=== PATIENT | female | born 1980 | race Caucasian/White ===

== ENCOUNTER → 2016-09-12 | Outpatient (REF) | payer OTHER ==
[~2016-09-12] MED LIST: INSUDET SC; INSULADS INJ; INSUR SC; LANTINJ4 SC; LISI-538 PO; LISI-542 PO; LISI10TA4 PO; MACR100C3 PO; MYLASSUD PO; NOVOINJ3 SC; PROT1TAB2 PO; REGL5TAB2 PO; VITA1CAP25 PO; ZETI10TA2 PO
== END ==
LOC: M LAB REF 17:24
PROVIDERS: ATTEND Physician Assistant Medical
DX: N39.0 Urinary tract infection, site not specified (principal)

== ENCOUNTER 2016-09-21 15:12 | Inpatient (IN) | payer OTHER ==
[~2016-09-21] VITALS: Ht 167.6 cm; Wt 74.0 kg
[~2016-09-21 15:12] MED LIST changes: +AUGM875T27 PO; -INSULADS INJ; +INSULADS SC; +PERCOCET PO
[2016-09-21] MEDS ORDERED: NITR100C2 (15:24)
[2016-09-21 16:44] LABS: BASO % 0.1 % (0.0-1.0); EOS # 0.1 K/mm3 (0.0-0.50); EOS % 0.4 % (0.0-3.0); LARGE UNSTAINED CELL # 0.1 K/mm3 (0.0-0.4); LARGE UNSTAINED CELL % 0.3 % (0.0-4.0); LYMPH # 0.5 K/mm3 (1.5-4.5); LYMPH % 2.9 % (24.0-44.0); MEAN CORPUSCULAR HGB CONC 29.9 g/dl (32.0-36.5); MEAN CORPUSCULAR VOLUME 86.9 fl (80.0-96.0); MONO # 0.2 K/mm3 (0.0-0.8); MONO % 1.2 % (0.0-5.0); NEUTROPHILS # 15.3 K/mm3 (1.8-7.7); NEUTROPHILS % 95.1 % (36.0-66.0); PLATELET COUNT, AUTOMATED 449 k/mm3 (150-450); RED CELL DISTRIBUTION WIDTH 14.1 % (11.5-14.5)
[2016-09-21] MEDS ORDERED: cefTRIAXone SOD 2 GM in D5W MINI-BAG PLUS 50 ML IV ONE (16:45)
[2016-09-21] MEDS ORDERED: METOCLOPRAMIDE INJ 10MG/2ML VIAL (J2765) IV ONE (16:45)
[2016-09-21 17:00] LABS: ALBUMIN 1.5 GM/DL (3.2-5.2); ALBUMIN/GLOBULIN RATIO 0.32 (1.00-1.93); ALKALINE PHOSPHATASE 620 U/L (45-117); ALT/SGPT 140 U/L (12-78); ANION GAP 11 MEQ/L (8-16); AST/SGOT 98 U/L (15-37); BILIRUBIN,TOTAL 0.4 MG/DL (0.2-1.0); BLOOD UREA NITROGEN 17 MG/DL (7-18); CALCIUM LEVEL 7.9 MG/DL (8.5-10.1); CARBON DIOXIDE LEVEL 26 MEQ/L (21-32); CHLORIDE LEVEL 97 MEQ/L (98-107); CREATININE FOR GFR 1.09 MG/DL (0.55-1.02); GLOMERULAR FILTRATION RATE > 60.0 (>60); GLUCOSE, FASTING 252 MG/DL (70-105); POTASSIUM SERUM 4.2 MEQ/L (3.5-5.1); SODIUM LEVEL 134 MEQ/L (136-145); TOTAL PROTEIN 6.2 GM/DL (6.4-8.2)
[2016-09-21] MEDS ORDERED: ACETAMINOPHEN 325 MG TAB PO ONE (17:00)
[2016-09-21 17:05] LABS: ERYTHROCYTE SEDIMENTATION RATE 127 mm/hr (0-20)
--- NOTE | 2016-09-21 17:59 | REP ---
Chest x-ray: Two views: History: Shortness of breath. Comparison chest x-ray: 11/24/2015. Findings: There are small bilateral pleural effusions which is a new finding from the prior study. In addition, the cardiac silhouette is prominent on today's frontal and lateral views. Cardiothoracic ratio is 14.7 cm over 28.4 cm. Pulmonary vasculature is cephalized. Impression: Cardiomegaly, small bilateral pleural effusions, cephalization and congestion the pulmonary vasculature. Mild CHF/volume overload pattern. Signed by Deepak Miramontes MD 09/21/2016 06:29 P
--- NOTE | 2016-09-21 18:00 | REP ---
Right foot series: Four views. History: Postop infection. Findings: Four views of the right foot show amputation of the fourth toe. There is diffuse soft tissue swelling. There is new fairly extensive soft tissue emphysema in the soft tissues adjacent to the amputation site as well as extending proximally in the volar soft tissues of the forefoot and midfoot. This implies the presence of gas-forming organism cellulitis. No opaque foreign body is seen. Impression: Extensive soft tissue emphysema in the plantar soft tissues. Gas forming cellulitis or fasciitis suspected. The patient status post amputation of the fourth toe. No acute bony abnormality. Signed by Deepak Miramontes MD 09/21/2016 06:29 P
[2016-09-21] MEDS ORDERED: NS 1,000 ML IV SCH (18:25)
[2016-09-21] MEDS ORDERED: ONDANSETRON 4MG/2ML VIAL (J2405) IV PRN (18:30)
[2016-09-21] MEDS ORDERED: oxyCODONE 5MG TAB PO PRN (18:30)
[2016-09-21] MEDS ORDERED: VANCOMYCIN HCL 1,000 MG, VIAL MATE ADAPTER 1 EACH in D5W 250 ML IV ONE (18:30)
[2016-09-21] MEDS ORDERED: LIDOCAINE 2% MDV 20 ML VIAL As Ordered ONE (18:51)
[2016-09-21] MEDS ORDERED: PIPERACILLIN/TAZOBACTAM SOD 3.375 GM in D5W MINI-BAG PLUS 50 ML IV ONE (19:00)
[2016-09-21] MEDS ORDERED: DEXTROSE 50% 50 ML SYRINGE IV PRN (19:00)
[2016-09-21] MEDS ORDERED: GLUCOSE 4 GM CHEW TABLET PO PRN (19:00)
[2016-09-21] MEDS ORDERED: GLUCAGON FOR INJ 1 MG VIAL (J1610) SC PRN (19:00)
[2016-09-21] MEDS ORDERED: SODIUM CHLORIDE 0.9% 1000 ML IV ONE ×2 (19:00→20:00)
[2016-09-21] MEDS ORDERED: AUGM875T27 PO (19:15)
[2016-09-21] MEDS ORDERED: ATOR1TAB21 PO (19:18)
[2016-09-21] MEDS ORDERED: MACR100C42 PO (19:47)
--- NOTE | 2016-09-21 20:30 | HPE ---
DATE OF ADMISSION: 09/21/2016 PRIMARY CARE PROVIDER: Peggy Schulz. CHIEF COMPLAINT: Fever. HISTORY OF PRESENT ILLNESS: Ms. Kingston is a 35-year-old female with past medical history of type 1 diabetes, osteomyelitis right 4th toe, status post amputation who presented to the ED today with complaint of fevers, chills that started this morning. The patient was recently discharged on September 18, 2016 after undergoing right 4th toe amputation for osteomyelitis. During that visit was treated with ceftaroline initially and was later switched to Unasyn. Culture was positive for methicillin-susceptible Staphylococcus aureus (MSSA), group B Streptococcus and Streptococcus anginosis. After amputation, was doing well. She was discharged home with Augmentin. Per patient and family, since discharge has been doing well. Has been compliant with her antibiotics. However, this morning after waking up she was having excessive shaky episodes, chills and fevers. Highest temperature at home was 102.7. She took some Tylenol which seemed to decrease her temperature. However, because of her persistent fever and chills she was brought in by her and son for evaluation. Aside from her chills and fevers denies any pain to her right foot. Per , he has been changing her dressing every day and has not noticed significant purulent or bloody discharge from her foot. No nausea, vomiting, diarrhea, constipation, headache, lightheadedness, dizziness. In the ED she was given Rocephin and Zosyn and also vancomycin. PAST MEDICAL HISTORY: Type 1 diabetes. Hyperlipidemia. Right foot osteomyelitis. PAST SURGICAL HISTORY: Right 4th toe amputation from September 2016 for osteomyelitis. Breast implants. section. HOME MEDICATIONS: - Augmentin 875 one table by mouth twice a day - NovoLog insulin sliding scale - Lantus 30 unit every a.m. - lisinopril 20 mg daily ALLERGIES: OXYCODONE. BENADRYL. Reactions are vivid dreams. SOCIAL HISTORY: The patient is an ex-smoker. Used to smoke for a total of two years. Quit 10 years ago. Drinks a glass of wine over the weekend. No drug use. 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 Lifetime travel includes [place], [place], [place], [place]. Currently lives at home with her , children and one dog. FAMILY HISTORY: Parents with hyperlipidemia, mother with thyroid cancer and father with type 2 diabetes. REVIEW OF SYSTEMS: CONSTITUTIONAL: Positive for chills, fevers, night sweats. Reports good appetite and no changes to her weight. HENT: Denies headaches, lightheadedness, dizziness, blurry vision, difficulty with speech and swallow. EYES: No blurry vision or diplopia. CARDIOVASCULAR: Denies chest pain, paroxysmal nocturnal dyspnea, pillow orthopnea, lower extremity edema. PULMONARY: Denies shortness of breath, productive cough, hemoptysis. GASTROINTESTINAL: Denies hematochezia, melena, or hematemesis, nausea, vomiting, diarrhea, constipation. GENITOURINARY: No dysuria, frequency or hematuria. MUSCULOSKELETAL: No bone, muscle, joint pain. NEUROLOGICAL: No paralysis, paresthesia, headaches. ENDOCRINE: Positive for type 1 diabetes. No thyroid disease. LYMPHATICS: No lumps, bumps, or swelling anywhere in neck, axilla, or groin. HEMATOLOGY: No abnormal bleeding or bruising. SKIN: Positive for redness and swelling to her right foot which reportedly has not worsened since her discharge. PHYSICAL EXAMINATION: VITAL SIGNS: Blood pressure 158/70, heart rate 122, temperature 102.7, respiration rate 24, pulse oximetry 94% on room air. GENERAL: The patient is lying in bed sleeping. Reportedly is very sleepy after given Reglan. She appears pale, her son and at bedside. HEENT: Normocephalic, atraumatic. Moist oral mucosa. Fair dentition. EYES: Extraocular movements intact. Pupils equal and reactive to light. NECK: Supple. Trachea is midline. No jugular venous distention (JVD). CHEST: Symmetric chest rise. No accessory muscle use. Breath sounds clear to auscultation bilaterally. HEART: Tachycardic with normal S1, S2, regular sounding. ABDOMEN: Protruberant, but nontender, nondistended. Bowel sounds present. No guarding, no rebound. EXTREMITIES: Trace edema in the left lower extremity. Right foot is edematous extending to pretibial region. It is erythematous, but nontender to palpation. She is status post amputation with sutures in place by her right 4th metatarsal. She has a bullous lesion on the plantar surface of her toe. Did not appreciated crepitations on examination. No obvious drainage from her right foot. NEUROLOGICAL: She is alert, awake, oriented upon verbal commands though she dozes off easily. PSYCHIATRIC: Cooperative. LABORATORY DATA: WBC 16, hemoglobin 9, hematocrit 30. This is not significantly changed compared to baseline. Platelets 449, erythrocyte sedimentation rate 127, sodium 134, potassium 4.2, chloride 97, carbon dioxide 26, BUN 17, creatinine 1.09. Fasting glucose 252, lactic acid 2.6, calcium 7.9. AST 98, ALT 140, alkaline phosphatase 620. CRP 23.3, total protein 6.2. Liver profile back in 2016 was normal. Foot x-ray showed extensive soft tissue emphysema in the plantar soft tissues. Gas forming cellulitis or fasciitis suspected. No acute bony abnormality. Chest x-ray report, cardiomegaly, small bilateral pleural effusions, cephalization and congestion, mild congestive heart failure (CHF) with volume overload pattern. IMPRESSION/PLAN: Ms. Kingston is a 35-year-old female with past medical history of type 1 diabetes and osteomyelitis, status post recent amputation of her right 4th toe, came into today with fever and chills. 1. Sepsis. Secondary to her underlying right foot infection. The patient will be started on aggressive IV fluid hydration. Repeat lactic acid level. She failed by mouth antibiotic treatment. Therefore, will start broad spectrum antibiotics with Vancomycin and Zosyn. Source of infection is her right foot. 2. Right foot fasciitis and/or abscess. Dr. Black has been consulted and currently there is plan for bedside incision and debridement. The patient has eaten recently and unfortunately could not be taken to the OR. Will followup with further recommendations. Greatly appreciate Dr. Black's assistance. Continue broad spectrum antibiotics with vancomycin and Zosyn. Followup with wound cultures. 3. History of osteomyelitis. She is status post right 4th toe amputation. Plan as mentioned above. 3. Type 1 diabetes. The patient will be on carbohydrate consistent diet and insulin qAC and qhs. After midnight, she will be made nothing by mouth (npo) and at which point will be made insulin sliding scale every 6 hours. Will need to continue basal insulin but at decreased dose because of NPO status. 4. Tachycardia. Secondary to underlying infection. Continue IV hydration and antibiotics as mentioned. 5. Leukocytosis secondary to infection as mentioned above. Plan as mentioned. 6. Deep venous thrombosis (DVT) prophylaxis. Sequential compression devices (SCDs), thromboembolism deterrents (TEDs), and plan for heparin after surgery. DISPOSITION: Due to patient's critical condition, we would expect her stay to be greater than 2 midnights. My preceptor for this patient encounter was Dr. Eitan Anderson. The preceptor was physically present in the building during the encounter and was fully available. As needed, all aspects of the patient interview, examination, medical decision making process, and medical care plan development were reviewed and approved by the preceptor. The preceptor is aware and concurs with the plan as stated in the body of this note and will attest to such by his/her cosignature. cc: Ton Escobar, [facility]
--- NOTE | 2016-09-21 20:42 | IPN ---
DATE: 09/21/2016 7:47 p.m. CHIEF COMPLAINT: Patient seen in the emergency room for evaluation of increasing swelling and tenderness of her right foot. The patient presented to the emergency room, I was notified and presented at bedside. The patient has an extremely swollen central space and medial space of her right foot. There was a blister formation in the central arch. The area of erythema measures 17 cm from distal to proximal into the medial arch and approximately 7 cm from medial to lateral. The skin is tense. HOME MEDICATIONS: - insulin - lisinopril PAST MEDICAL HISTORY: Hyperlipidemia. Type 2 diabetes. LABORATORY STUDIES: Reveals a white count of 16, ESR of 127, lactic acid 2.6. Foot x-rays were reviewed, reveals a fourth toe amputation, soft tissue swelling is noted. Air is noted throughout the plantar aspect of the foot not seen on the AP and the medial section but seen in the central aspect. ASSESSMENT: Central and plantar foot abscess, right foot. PLAN: The patient was anesthetized today and a small incision was made over the abscess formation to allow some drainage and culture and sensitivity. The patient ate 1 hour previously; therefore, she could not be taken to the operating room but she is scheduled for a complete operative release at 7:30 in the morning. Her questions were answered and consent was signed. After appropriate time-out in the emergency room, a small 2 cm incision was placed and dissection was carried just deep to the plantar fascia where approximately 5 mm of yellow purulent matter was expressed and cultured. This was packed with half-inch Iodoform gauze.
[2016-09-21] MEDS ORDERED: NOREPINEPHRINE 4 MG/4 ML AMP As Ordered ONE (20:59)
[2016-09-21] MEDS ORDERED: NOREPINEPHRINE BITARTRATE 8 MG in D5W 500 ML IV SCH ×2 (21:00→21:30)
[2016-09-21] MEDS ORDERED: HumaLOG INSULIN (NovoLOG) PER UNIT SC ONE (21:00)
[2016-09-21 22:02] VITALS: BP 106/64
[2016-09-21 22:21] VITALS: BP 126/73
[2016-09-21 22:30] VITALS: BP 102/57
[2016-09-21 22:37] VITALS: BP 101/63
[2016-09-21] MEDS: LACTOBACILLUS ACIDOPHILUS CAP (BACID) PO SCH (23:00)
[2016-09-21] MEDS: VANCOMYCIN HCL 1,000 MG, VIAL MATE ADAPTER 1 EACH in D5W 250 ML IV SCH (23:01)
[2016-09-21] MEDS: HumaLOG INSULIN (NovoLOG) PER UNIT SC SCH (23:04)
[2016-09-21 23:07] VITALS: BP 111/67
[2016-09-21 23:37] VITALS: BP 151/85
[2016-09-22] VITALS (35 sets, daily range): BP systolic 74–146; BP diastolic 44–94
[2016-09-22] MEDS: PIPERACILLIN/TAZOBACTAM SOD 3.375 GM in D5W MINI-BAG PLUS 50 ML IV SCH ×4 (02:10→20:51)
--- NOTE | 2016-09-22 02:13 | REP ---
Clinical: Line placement. Shortness of breath. Comparison: 09/21/2016 at 04:50 p.m.. Findings: Right IJ line with tip in the SVC. Mediastinum and cardiac silhouette are normal. Diffuse bilateral opacities extending peripherally from the bilateral gordo most suggestive of pulmonary edema. Scattered atelectasis (right greater than left) cannot be excluded along with layering effusion. No pneumothorax. Skeletal structures stable. Impression: Right IJ line in satisfactory position. Findings most compatible with pulmonary edema and possible layering effusion as well as scattered atelectasis. Signed by Marcio Roe MD 09/22/2016 02:06 A
[2016-09-22] MEDS: HumaLOG INSULIN (NovoLOG) PER UNIT SC SCH ×4 (05:10→20:20)
[2016-09-22 05:21] LABS: BASO % 0.1 % (0.0-1.0); EOS # 0.1 K/mm3 (0.0-0.50); EOS % 0.2 % (0.0-3.0); LARGE UNSTAINED CELL # 0.2 K/mm3 (0.0-0.4); LARGE UNSTAINED CELL % 0.6 % (0.0-4.0); LYMPH # 1.3 K/mm3 (1.5-4.5); LYMPH % 3.4 % (24.0-44.0); MEAN CORPUSCULAR HEMOGLOBIN 26.7 pg (27.0-33.0); MEAN CORPUSCULAR HGB CONC 30.8 g/dl (32.0-36.5); MEAN CORPUSCULAR VOLUME 86.7 fl (80.0-96.0); NEUTROPHILS % 92.7 % (36.0-66.0); PLATELET COUNT, AUTOMATED 437 k/mm3 (150-450); RED CELL DISTRIBUTION WIDTH 14.4 % (11.5-14.5); RETIC HEMOGLOBIN CONTENT CHr 22.9 PG (24-36); RETICULOCYTE ABSOLUTE ADVIA212 50 x10(9)/L (17-77)
[2016-09-22 05:23] LABS: WHITE BLOOD COUNT 33.4 K/mm3 (4.0-10.0)
[2016-09-22 05:35] LABS: ALBUMIN 1.1 GM/DL (3.2-5.2); ALBUMIN/GLOBULIN RATIO 0.28 (1.00-1.93); BILIRUBIN,TOTAL 0.5 MG/DL (0.2-1.0); CALCIUM LEVEL 6.6 MG/DL (8.5-10.1); CREATININE FOR GFR 1.38 MG/DL (0.55-1.02); GLOMERULAR FILTRATION RATE 46.6 (>60); MAGNESIUM LEVEL 1.9 MG/DL (1.8-2.4); PERCENT SATURATION 4.8 % (13.2-37.4); POTASSIUM SERUM 4.1 MEQ/L (3.5-5.1)
[2016-09-22] MEDS ORDERED: HumaLOG INSULIN (NovoLOG) PER UNIT SC SCH (07:30)
[2016-09-22] MEDS ORDERED: BUPIVACAINE HCL 0.25% 30 ML VIAL As Ordered ONE (08:10)
[2016-09-22] MEDS ORDERED: LIDOCAINE 2% MDV 20 ML VIAL As Ordered ONE (08:10)
[2016-09-22] MEDS ORDERED: BACITRACIN PWD 50,000 UNITS VIAL As Ordered ONE (08:11)
[2016-09-22] MEDS ORDERED: dexameTHASONE 4 MG/ML 1ML VIAL (J1100) As Ordered ONE (08:11)
[2016-09-22] MEDS ORDERED: NEOSPORIN GU IRRIG 20 ML VIAL As Ordered ONE (08:11)
[2016-09-22] MEDS ORDERED: PROPOFOL 200 MG/20 ML VIAL As Ordered ONE (08:12)
[2016-09-22] MEDS ORDERED: LIDOCAINE 2% INJ 100 MG/5 ML SDV (FOR ANES.) As Ordered ONE (08:12)
[2016-09-22] MEDS ORDERED: ONDANSETRON 4MG/2ML VIAL (J2405) As Ordered ONE (08:12)
[2016-09-22] MEDS ORDERED: fentaNYL 100 MCG/2 ML INJECTION (J3010) As Ordered ONE (08:13)
[2016-09-22] MEDS ORDERED: MIDAZOLAM INJ 2 MG/2 ML VIAL (J2250) As Ordered ONE (08:13)
[2016-09-22] MEDS ORDERED: PROPOFOL 500 MG/50 ML VIAL As Ordered ONE (08:18)
[2016-09-22] MEDS ORDERED: KETAMINE HCL 200 MG/20 ML VIAL As Ordered ONE (08:47)
[2016-09-22] MEDS ORDERED: LEVEMIR (INSULIN DETEMIR) 1 UNITS/0.01ML SC SCH (09:00)
[2016-09-22] MEDS ORDERED: VANCOMYCIN 1000 MG/20 ML VIAL (J3370) As Ordered ONE (09:11)
[2016-09-22] MEDS ORDERED: ONDANSETRON 4MG/2ML VIAL (J2405) IV PRN (10:45)
[2016-09-22] MEDS ORDERED: fentaNYL 100 MCG/2 ML INJECTION (J3010) IV PRN (10:45)
[2016-09-22] MEDS: LACTOBACILLUS ACIDOPHILUS CAP (BACID) PO SCH ×2 (11:32→20:51)
[2016-09-22] MEDS: LEVEMIR (INSULIN DETEMIR) 1 UNITS/0.01ML SC SCH (11:33)
[2016-09-22] MEDS: VANCOMYCIN HCL 1,000 MG, VIAL MATE ADAPTER 1 EACH in D5W 250 ML IV SCH (11:34)
[2016-09-22] MEDS: ACETAMINOPHEN TAB 650MG DOSE (2X325MG) PO PRN ×2 (12:51→20:52)
[2016-09-22 14:11] LABS: INR 1.32
--- NOTE | 2016-09-22 14:30 | PHACANCOPD ---
PHARMACY VANCOMYCIN DOSING Pt Demographics Demographics Patient Age:35 , Weight:79.500 , Gender: female Adjusted Body Weight Date: 09/22/16, Adjusted Body Weight: Kg Vancomycin Vancomycin indication: FASCIITIS Vancomycin Target Ranges: 15-20 mcg/ml Vancomycin Load Y/N: Yes Load Dose Date Time Vancomycin Load Dose: 2g Date: 09/21/16 Time: 1900 Vancomycin Dose Date: 09/22/16. Current Vancomycin Dose: [1g IV Q12H] Intermittent Dosing?: No Labs Micro Microbiology 09/21/16 Blood Culture, Received Pending 09/21/16 Blood Culture, Received Pending 09/21/16 Gram Stain - Final, Resulted 09/21/16 Wound Culture, Resulted Pending 09/21/16 Anaerobic Culture, Resulted Pending Creatinine Clearance Date:09/22/16. Estimated Creatinine Clearance: [~73ml/min]. Pending Labs Vancomycin trough scheduled 09/23/16 @0800 Assessment and Plan Maintaining Current Dose?: Yes Reason for dose change: No Dose Change Pharmacist Note Pharmacist Note Date: 09/22/16. Pharmacist note: I have scheduled a trough to be drawn today, @2000, due to apparent MYLENE (scr 1.09 yesterday, and scr 1.38 today) to ensure levels are not supratherapeutic. The patient's output over the past 24hrs appears to be minimal. We will follow-up on vancomycin level and adjust dosing if needed. [facility] Sep 22, 2016 14:30
--- NOTE | 2016-09-22 15:33 | IPN ---
DATE: 09/22/2016 SUBJECTIVE: This is a 35-year-old female who is seen and examined in both post-anesthesia care unit (PACU) and intensive care unit (ICU) room. Last night, she had an eventful evening where she became significantly hypotensive. Her systolic blood pressure lowest was 63 with a mean arterial pressure (MAP) lowest of 49. She underwent central line placement and was started on Levophed drip. She also was continued with IV fluid hydration at 100 mL per hour. After midnight, she was made nothing by mouth and early this morning underwent surgery for her right foot abscess with Dr. Black. Per staff, the patient remained on Levophed drip throughout her surgery and received a total of 450 mL of IV fluid intraoperatively and postoperatively. Her systolic blood pressure postoperatively was in the 110s and 120s. This afternoon, she feels tired and wants to go to sleep. Reports some pain to her right foot which is well-controlled with Tylenol. No fevers, chills, night sweats, nausea, vomiting, diarrhea, constipation, headache, lightheadedness, or dizziness. She tolerated her lunch well. OBJECTIVE: VITAL SIGNS: Blood pressure 91/55, heart rate 87, pulse oximetry 95% on room air , temperature 100.3 this morning, maximum temperature (T-max) was 102.7 on admission yesterday. INTAKE AND OUTPUT: 1407 and 350. Weight is 79.5 kg. GENERAL: The patient is lying in intensive care unit (ICU) bed, comfortable, in no acute distress. She is awake, alert, and oriented times three but tired and chronically ill-appearing. She appears pale. HEENT: Normocephalic, atraumatic. Eyes: Extraocular movement intact. NECK: Supple. Trachea midline. No jugular venous distention (JVD). CHEST: Symmetric chest rise. No accessory muscle use. Breath sounds were diminished bilaterally with occasional crackles in lung base. It is dull to percussion. HEART: Regular rate and rhythm with normal S1, S2. ABDOMEN: Protuberant, but nontender, nondistended. Bowel sounds present. No guarding. No rebound. EXTREMITIES: She has 1 to 2+ pitting edema extending to pretibial region. Her right lower extremity is currently being wrapped post-surgery. NEUROLOGICAL: She is alert, awake and oriented. PSYCHIATRIC: Cooperative. LABORATORY DATA: WBC 33.4, hemoglobin 7.7, hematocrit 25, platelets 437, neutrophils 31%. Sodium 135, potassium 4.1, chloride 102, carbon dioxide 24, BUN 20, creatinine 1.38, glucose 353, lactic acid 7.4, later improved to 1.3, calcium 6.6, magnesium 1.9, iron 7, TIBC 146, transferrin 4.8, ferritin 667. Liver profile: AST 529, ALT 306, alkaline phosphatase 557. CRP 23.2, albumin 1.1. Wound culture and Gram-stain pending. Blood cultures pending. Chest x-ray last night showed right IJ in satisfactory position, diffuse bilateral opacity extending peripherally from bilateral hilar, more suggestive of pulmonary edema, scattered atelactasis, no pneumothorax. IMPRESSION AND PLAN: Ms. Kingston is a 35-year-old female with history of type 1 diabetes and osteomyelitis, recently underwent amputation of her right fourth toe, returned to the hospital due to sepsis and septic shock. 1. Septic shock. Secondary to right foot abscess. She is status post abscess drainage. Reportedly tolerated surgery well. Greatly appreciate Dr. Black's assistance. We will continue with broad-spectrum antibiotic coverage including Zosyn and vancomycin. Await wound culture. On review of prior admission, she had multiple organisms growing including Streptococcus agalactiae, methicillin-sensitive Staphylococcus aureus (MSSA), Streptococcus malaria, and multiple anaerobic organisms including fusobacterium and Prevotella. It appears that multiple organisms in the past were sensitive to vancomycin. Because of her worsening chest x-ray last night, we will hold off on the fluid hydration but we will maintain her pressure with Levophed with mean arterial pressure (MAP) greater than 65. 2. Transaminitis. Secondary to sepsis. Continue to monitor levels. Hopefully, this will improve now that she is status post surgery. 3. Anemia. Hemoglobin and hematocrit is decreased today compared to admission. We will repeat her levels today. Check prothrombin time (PT) and international normalized ratio (INR). She will likely require a blood transfusion. 4. Acute kidney injury. Likely secondary to underlying infection and sepsis. Check urinalysis. 5. History of osteomyelitis. She is status post right fourth toe amputation. Unfortunately, she developed abscess as mentioned above. 6. Type 1 diabetes. The patient can resume her carbohydrate-consistent diet and insulin sliding scale before meals and at bedtime now that she is status post surgery. 7. Leukocytosis. White blood cell (WBC) is significant worse today compared to yesterday. Hopefully, this is improved now that she underwent surgery with Dr. Black. 8. Deep venous thrombosis (DVT) prophylaxis. Sequential compression devices (SCDs) and thromboembolism deterrents (TEDs). No pharmacological intervention secondary to severe anemia. My preceptor for this patient encounter was Dr. Buster Woodard. The preceptor was physically present in the building during the encounter and was fully available. As needed, all aspects of the patient interview, examination, medical decision making process, and medical care plan development were reviewed and approved by the preceptor. The preceptor is aware and concurs with the plan as stated in the body of this note and will attest to such by his/her cosignature. ERICK
[2016-09-22] MEDS ORDERED: NOREPINEPHRINE BITARTRATE 8 MG in D5W 500 ML IV SCH ×2 (15:37→17:00)
--- NOTE | 2016-09-22 17:13 | RO ---
DATE OF PROCEDURE: 09/21/2016 PREOPERATIVE DIAGNOSIS: Septic shock. POSTOPERATIVE DIAGNOSIS: Septic shock. PROCEDURE: Right internal jugular (IJ) triple-lumen central line. SURGEON: Dr. Renay Dueñas EGG BUYER: Dr. Ruben Chen ANESTHESIA: 1% local lidocaine. ESTIMATED BLOOD LOSS: 10 mL. SEDATION: None. OXYGENATION: 50% Ventimask. DESCRIPTION OF PROCEDURE: Patient was placed in supine position. Site was cleaned with Chloraprep. Patient was draped in a sterile fashion. Sterilely covered ultrasound probe was used. 1% lidocaine was injected. With ultrasound guidance, patient's right internal jugular was located. Needle was inserted. Flash of blood was obtained. A guidewire was inserted through the needle. Needle was removed. Guidewire position was confirmed with ultrasound. Site was dilated. Triple-lumen central line was placed via Seldinger technique over guidewire and guidewire was removed, and all the ports were capped and all three ports were flushed and cleansed. Subsequently, surgical triple-lumen central line was secured with clamps and stitches and dressing was placed. X-rays ordered for confirmation. Patient tolerated the procedure with no complications. Will measure central venous pressure (CVP), and Levophed is ordered.
--- NOTE | 2016-09-22 17:24 | REP ---
CT study of the abdomen and pelvis with IV or oral contrast: History: Anemia, question retroperitoneal bleed. CT findings: Preliminary digital education teacher radiograph demonstrates an unremarkable bowel gas pattern. Moderate hepatomegaly is observed with liver measuring 21 cm in craniocaudal span in the midclavicular line. No focal hepatic lesion is seen. There are small to moderate bilateral pleural effusions. There is mild diffuse abdominal ascites. Anasarca pattern is seen with diffuse subcutaneous edema. There is no localized evidence of retroperitoneal hemorrhage. Uterus is mildly enlarged. No focal uterine lesion is seen. Urinary bladder is unremarkable. No hydronephrosis is seen in the kidneys. No mass or calculus is observed. Spleen is unremarkable. No pancreatic lesion is seen. The gallbladder is small and contracted and there is pericholecystic fluid, moderate in degree surrounding the contracted gallbladder. No stone is seen. Bone window settings show no bony destructive lesion. No abdominal wall defect is seen. Incidental note is made of several mildly enlarged lymph nodes in the right groin consistent with reactive lymphadenopathy. Impression: 1. Anasarca pattern - diffuse subcutaneous edema with mild ascites. Bilateral pleural effusions. 2. There is some discoid atelectasis in the lower lobes of the lungs bilaterally. 3. Moderate hepatomegaly. 4. Mild uterine enlargement. 5. Mild reactive lymphadenopathy in the right inguinal soft tissues. Signed by Deepak Miramontes MD 09/23/2016 01:37 P
[2016-09-22] MEDS ORDERED: FUROSEMIDE 40 MG/4 ML VIAL (J1940) IV ONE (18:45)
[2016-09-22 20:19] LABS: BASO % 0.1 % (0.0-1.0); EOS # 0.2 K/mm3 (0.0-0.50); EOS % 0.8 % (0.0-3.0); LARGE UNSTAINED CELL # 0.2 K/mm3 (0.0-0.4); LARGE UNSTAINED CELL % 0.8 % (0.0-4.0); LYMPH # 1.7 K/mm3 (1.5-4.5); LYMPH % 6.1 % (24.0-44.0); MEAN CORPUSCULAR HEMOGLOBIN 27.3 pg (27.0-33.0); MEAN CORPUSCULAR HGB CONC 31.3 g/dl (32.0-36.5); MEAN CORPUSCULAR VOLUME 87.1 fl (80.0-96.0); MONO # 0.9 K/mm3 (0.0-0.8); NEUTROPHILS # 25.4 K/mm3 (1.8-7.7); NEUTROPHILS % 89.2 % (36.0-66.0); PLATELET COUNT, AUTOMATED 429 k/mm3 (150-450); RED CELL DISTRIBUTION WIDTH 14.5 % (11.5-14.5); WHITE BLOOD COUNT 28.5 K/mm3 (4.0-10.0)
[2016-09-22 20:49] LABS: ALBUMIN 1.1 GM/DL (3.2-5.2); ALBUMIN/GLOBULIN RATIO 0.28 (1.00-1.93); BILIRUBIN,TOTAL 0.3 MG/DL (0.2-1.0); CALCIUM LEVEL 7.2 MG/DL (8.5-10.1); CREATININE FOR GFR 1.51 MG/DL (0.55-1.02); POTASSIUM SERUM 3.8 MEQ/L (3.5-5.1)
[2016-09-23] VITALS (12 sets, daily range): BP systolic 98–126; BP diastolic 59–79
[2016-09-23] MEDS: PIPERACILLIN/TAZOBACTAM SOD 3.375 GM in D5W MINI-BAG PLUS 50 ML IV SCH ×4 (02:22→20:33)
[2016-09-23 05:45] LABS: BASO % 0.1 % (0.0-1.0); EOS # 0.3 K/mm3 (0.0-0.50); EOS % 1.2 % (0.0-3.0); LARGE UNSTAINED CELL # 0.2 K/mm3 (0.0-0.4); LARGE UNSTAINED CELL % 1.1 % (0.0-4.0); LYMPH # 1.2 K/mm3 (1.5-4.5); LYMPH % 5.4 % (24.0-44.0); MEAN CORPUSCULAR HEMOGLOBIN 27.8 pg (27.0-33.0); MEAN CORPUSCULAR HGB CONC 32.3 g/dl (32.0-36.5); MEAN CORPUSCULAR VOLUME 86.1 fl (80.0-96.0); MONO # 0.7 K/mm3 (0.0-0.8); MONO % 3.1 % (0.0-5.0); NEUTROPHILS # 19.6 K/mm3 (1.8-7.7); NEUTROPHILS % 89.1 % (36.0-66.0); PLATELET COUNT, AUTOMATED 374 k/mm3 (150-450); RED CELL DISTRIBUTION WIDTH 14.7 % (11.5-14.5)
[2016-09-23 06:08] LABS: ALBUMIN/GLOBULIN RATIO 0.26 (1.00-1.93); BILIRUBIN,TOTAL 0.3 MG/DL (0.2-1.0); CALCIUM LEVEL 7.4 MG/DL (8.5-10.1); CREATININE FOR GFR 1.24 MG/DL (0.55-1.02); GLOMERULAR FILTRATION RATE 52.7 (>60); MAGNESIUM LEVEL 1.8 MG/DL (1.8-2.4); POTASSIUM SERUM 3.8 MEQ/L (3.5-5.1); TOTAL PROTEIN 4.8 GM/DL (6.4-8.2)
[2016-09-23] MEDS: HumaLOG INSULIN (NovoLOG) PER UNIT SC SCH ×4 (07:38→20:33)
--- NOTE | 2016-09-23 09:57 | RO ---
DATE OF PROCEDURE: 09/22/2016 PREOPERATIVE DIAGNOSIS: Central space abscess right foot. POSTOPERATIVE DIAGNOSIS: Central space abscess right foot. PROCEDURE PERFORMED: Incision and drainage of deep central and superficial compartments and medial compartment right foot. SURGEON: Meng Black DPM ASSOCIATE BUSINESS ANALYST: None. ANESTHESIA: Local monitored anesthesia care (MAC). CHIEF COMPLAINT: Patient seen for evaluation of central space abscess. IRRIGATION: Dilute bacitracin, neomycin, and polymyxin B solution. Dilute vancomycin solution, 3 liters low pressure pulse lavage system. PACKING MATERIAL: 1/2-inch iodoform gauze. HEMOSTASIS: None. ESTIMATED BLOOD LOSS: 25 mL. DESCRIPTION OF OPERATION: On 09/22/2016, this 35-year-old white female was taken from her hospital room to the operating room and placed on the operating room table in the supine position. Following the induction of IV sedation and local and regional anesthesia, right lower extremity was prepped and draped with Betadine solution and the following procedure was performed: INCISION AND DRAINAGE OF CENTRAL SUPERFICIAL AND DEEP COMPARTMENTS AND MEDIAL COMPARTMENT RIGHT FOOT: Attention was directed to the patient's right foot, where there was noted to be a 2 cm previous incision. The incision was extended distally approximately 3 cm and in a proximal direction towards the medial compartment of the foot and a 12 cm incision was made. Dissection was carried down to the level of the plantar fascia, and the plantar fascia was dissected and transected along the incision line. The wound was traced distally an additional 2 cm towards the 4th metatarsal head and then proximally towards the calcaneus. Purulence was identified and irrigated out with a low pressure pulse lavage system, and 3 liters of fluid was utilized total. Along with central compartment, all layers were explored. There was no necrotic tissue that required debridement with the exception of newer skin. The medial compartment was opened. There was no purulence at this level; however, it was explored and irrigated as well. The wounds were then packed with 1/2-inch iodoform gauze, and a dry sterile dressing was applied. Anant wrap was applied lightly just to maintain the dressing. Patient, having apparently tolerated the surgical procedure well, was taken from the operating room (OR) to the recovery room. She was presently on vancomycin and Zosyn for antibiotic coverage until the culture becomes available, which was taken yesterday.
[2016-09-23] MEDS: VANCOMYCIN HCL 1,000 MG, VIAL MATE ADAPTER 1 EACH in D5W 250 ML IV SCH (10:08)
[2016-09-23] MEDS: LACTOBACILLUS ACIDOPHILUS CAP (BACID) PO SCH ×2 (10:09→20:33)
[2016-09-23] MEDS: LEVEMIR (INSULIN DETEMIR) 1 UNITS/0.01ML SC SCH (10:09)
[2016-09-23] MEDS: ACETAMINOPHEN TAB 650MG DOSE (2X325MG) PO PRN (13:40)
[2016-09-23] MEDS ORDERED: ACETAMINOPH W/CODEINE #3 TAB UD PO ONE (16:30)
[2016-09-23] MEDS ORDERED: PERCOCET 5MG/325MG TAB PO ONE (17:00)
--- NOTE | 2016-09-23 17:00 | IPN ---
DATE: 09/23/2016 SUBJECTIVE: This is a 35-year-old female who was seen and examined at bedside. Overnight, she was off Levophed around 2:00 a.m. Her blood pressure continues to be maintaining well. She did receive one unit of packed red blood cells yesterday and tolerated that well. Because of her significant ascites found on CT, she did receive a one-time dose of Lasix and reported good urine output with medication. This morning, she feels better. Denies any chest pain, shortness of breath, nausea, vomiting, diarrhea, constipation, fevers, or chills. She is waiting for Dr. Black to come and change her dressing to her right foot. Otherwise, no concerns. OBJECTIVE: VITAL SIGNS: Blood pressure 116/70, heart rate 97, temperature 100.5, respiratory rate 18, pulse oximetry 91% on room air. INTAKE AND OUTPUT: Last 24 hours, 3814 and 1300. Weight is 79.7 kg. GENERAL: The patient is lying in bed, comfortable, in no acute distress. She is awake, alert, and oriented times three, pleasant and cooperative, less toxic-appearing today compared to yesterday. at bedside. She is less pale today compared to yesterday. HEENT: Normocephalic, atraumatic. Moist oral mucosa. Eyes: Extraocular movement intact. NECK: Supple. Trachea midline. Right internal jugular (IJ) is in place, surrounding area appears clean and dry. CHEST: Symmetric chest rise. No accessory muscle use. Breath sounds diminished with occasional crackle in the lung base. Still dull to percussion. HEART: Regular rate and rhythm with normal S1, S2. ABDOMEN: Protuberant, but nontender, nondistended. Bowel sounds present. No guarding. No rebound. Right lower abdomen with ecchymotic changes which reportedly has been present since last Wednesday. EXTREMITIES: She continues to have 1 to 2+ pitting edema extending to her sacral region. Her right foot is currently being wrapped NEUROLOGICAL: She is alert, awake and oriented times three. PSYCHIATRIC: Pleasant and cooperative. LABORATORY DATA: WBC 22, improved from yesterday of 33.4, hemoglobin 8, improved from yesterday of 7, hematocrit 24.8, platelets 374. Sodium 137, potassium 3.8, chloride 104, carbon dioxide 27, BUN 24, creatinine 1.24, improved from yesterday of 1.51, calcium 7.4, lactic acid 1, AST 193, ALT 236, alkaline phosphatase 492. CRP 17.4, improved from yesterday of 23, albumin is only 1, total protein 4.8. Vancomycin trough level 20.4. Hepatitis panel negative. CT abdomen and pelvis yesterday reported diffuse subcutaneous edema with mild ascites, bilateral pleural effusion, some discoid atelectasis on the lower lobes of the lung bilaterally, moderate hepatomegaly, mild uterine enlargement with mild reactive adenopathy in right inguinal soft tissues. IMPRESSION AND PLAN: Ms. Kingston is a 35-year-old female with history of type 1 diabetes who recently developed osteomyelitis and underwent right fourth toe. Unfortunately, she returned to the hospital with septic shock secondary to her right foot abscess. 1. Septic shock, resolved. She is now off Levophed. She is status post postoperative day one of incision and drainage. Continue with vancomycin and Zosyn. Clinically, she appears to be improving significantly compared to yesterday. Greatly appreciate Dr. Black's assistance. We will await for culture from her wound. 2. Transaminitis. Secondary to septic shock. This is improved with antibiotics, surgery, and pressor support. 3. Anemia. She is status post one unit of packed red blood cells given yesterday. Etiology for her significant anemia is currently unclear. We have ordered for stool occult. 4. Acute kidney injury. Secondary to sepsis and septic shock. Renal function continues to be improving. 5. History of osteomyelitis. She is status post right fourth toe amputation and went on to develop an abscess as discussed above. 6. Type 1 diabetes. Continue carbohydrate-consistent diet, insulin sliding scale before meals, and basal insulin. She is on Levemir 15 units daily. 7. Leukocytosis. This is significantly improved compared to yesterday. 8. Deep venous thrombosis (DVT) prophylaxis. Sequential compression devices (SCDs) and thromboembolism deterrents (TEDs). No pharmacological intervention for now due to her severe anemia. DISPOSITION: If she continues to be improving with her blood pressure off pressor support, hopefully she can be transferred to medical/surgical floor later today. My preceptor for this patient encounter was Dr. Buster Woodard. The preceptor was physically present in the building during the encounter and was fully available. As needed, all aspects of the patient interview, examination, medical decision making process, and medical care plan development were reviewed and approved by the preceptor. The preceptor is aware and concurs with the plan as stated in the body of this note and will attest to such by his/her cosignature. ERICK
--- NOTE | 2016-09-23 17:32 | IPN ---
DATE: 09/23/2016 TIME: 5:01 p.m. CHIEF COMPLAINT: The patient is seen today at bedside for an incision and drainage of deep and superficial central space abscess. The bandage was removed from the patient's right foot. The incision on the fourth toe amputation site is healing well. The drains were pulled from the central space wound. There was some minimal purulence at the distal margin of the incision, none along the proximal site. The wound was flushed with normal saline and a bandage was applied to the patient's right foot. The gauze was placed into the distal margin, holding the wound open and a lightly compressive bandage was applied consisting of 4 x 4 and 4 inch [place]. The patient's culture is still unavailable. The patient will continue on antibiotics with vancomycin and Zosyn. This can be tailored when her final culture becomes available. We discussed with the patient a delayed primary closure with staple fixation on the proximal wound; however, the distal wound may not be able to close and we could use a wound VAC to help close this wound. This will be scheduled when appropriate. Her questions were answered.
--- NOTE | 2016-09-23 20:02 | ECHO ---
DATE OF PROCEDURE: 09/23/2016 REFERRING PHYSICIAN: Dr. Buster Woodard PATIENT LOCATION: Room 3201 REASON FOR ECHOCARDIOGRAM: Edema. 2D MEASUREMENTS: IVS: 1.1 cm LV: 4.0 cm LVPW: 1.2 cm LA: 3.4 cm Aorta: 3.0 cm IVC: 2.4 cm DOPPLER MEASUREMENTS: Peak velocity across the aortic valve: 1.6 m/s Peak velocity across the LVOT: 1.2 m/s Mitral E: 1.3, Mitral A: 0.83, with a ratio of 1.5 Maximum tricuspid valve velocity: 2.0 m/s 2D COMMENTS: 1. Normal left ventricular size, wall thickness and normal global left ventricular systolic function estimated at 65 to 70%. 2. Normal left atrium. Normal right atrium and right ventricle. 3. The atrial septum appeared to be normal without evidence of defect or shunt. 4. Normal aortic root. 5. Trace to small pericardial effusion noted, no evidence of cardiac tamponade. 6. Normal aortic valve. Normal mitral valve, tricuspid valve and pulmonic valve. The proximal pulmonary artery branches were not well visualized. 7. The inferior vena cava was mildly enlarged, central venous pressure might be elevated. DOPPLER: It detects trace to mild mitral regurgitation and trace tricuspid regurgitation. The calculated pulmonary artery systolic pressure was normal, less than 30 mmHg. Assessment of the left ventricular diastolic function appeared to be normal. IMPRESSION: 1. Normal global left ventricular systolic and diastolic function. 2. Trace to mild mitral regurgitation. 3. Trace tricuspid regurgitation with a normal calculated pulmonary artery systolic pressure. 4. Trace to small pericardial effusion noted, no evidence of cardiac tamponade.
[2016-09-24] VITALS: BP 161/85
[2016-09-24] MEDS: PIPERACILLIN/TAZOBACTAM SOD 3.375 GM in D5W MINI-BAG PLUS 50 ML IV SCH ×4 (01:05→20:31)
[2016-09-24 04:00] VITALS: BP 163/87
[2016-09-24 04:48] LABS: BASO % 0.2 % (0.0-1.0); EOS # 0.3 K/mm3 (0.0-0.50); EOS % 1.2 % (0.0-3.0); LARGE UNSTAINED CELL # 0.2 K/mm3 (0.0-0.4); LYMPH # 1.4 K/mm3 (1.5-4.5); LYMPH % 6.5 % (24.0-44.0); MEAN CORPUSCULAR HEMOGLOBIN 27.7 pg (27.0-33.0); MEAN CORPUSCULAR HGB CONC 31.4 g/dl (32.0-36.5); MEAN CORPUSCULAR VOLUME 88.3 fl (80.0-96.0); MONO # 0.5 K/mm3 (0.0-0.8); MONO % 2.4 % (0.0-5.0); NEUTROPHILS # 19.3 K/mm3 (1.8-7.7); NEUTROPHILS % 88.7 % (36.0-66.0); PLATELET COUNT, AUTOMATED 416 k/mm3 (150-450); RED CELL DISTRIBUTION WIDTH 14.9 % (11.5-14.5); WHITE BLOOD COUNT 21.8 K/mm3 (4.0-10.0)
[2016-09-24 05:13] LABS: ALBUMIN 1.1 GM/DL (3.2-5.2); ALBUMIN/GLOBULIN RATIO 0.22 (1.00-1.93); BILIRUBIN,TOTAL 0.2 MG/DL (0.2-1.0); CALCIUM LEVEL 7.5 MG/DL (8.5-10.1); CREATININE FOR GFR 1.12 MG/DL (0.55-1.02); GLOMERULAR FILTRATION RATE 59.3 (>60); MAGNESIUM LEVEL 1.9 MG/DL (1.8-2.4); POTASSIUM SERUM 4.1 MEQ/L (3.5-5.1)
[2016-09-24 08:00] VITALS: BP 169/92
[2016-09-24] MEDS: HumaLOG INSULIN (NovoLOG) PER UNIT SC SCH ×4 (09:12→20:22)
[2016-09-24] MEDS: LACTOBACILLUS ACIDOPHILUS CAP (BACID) PO SCH ×2 (09:13→20:31)
[2016-09-24] MEDS: VANCOMYCIN HCL 1,000 MG, VIAL MATE ADAPTER 1 EACH in D5W 250 ML IV SCH (09:13)
[2016-09-24] MEDS: LEVEMIR (INSULIN DETEMIR) 1 UNITS/0.01ML SC SCH (09:13)
[2016-09-24] MEDS ORDERED: LEVEMIR (INSULIN DETEMIR) 1 UNITS/0.01ML As Ordered ONE (12:12)
[2016-09-24] MEDS ORDERED: LEVEMIR (INSULIN DETEMIR) 1 UNITS/0.01ML SC ONE (12:15)
--- NOTE | 2016-09-24 14:03 | IPN ---
DATE OF VISIT: 09/24/2016 SUBJECTIVE: This is a 35-year-old female who was seen and examined in intensive care unit (ICU) room. Overnight, no reported acute events. She continues to be doing well off the Levophed. Denies any chest pain, shortness of breath, nausea, vomiting, diarrhea, constipation, or chills. Had an episode of low- grade fever last night. Slept well last night without issues. OBJECTIVE: VITAL SIGNS: Blood pressure 163/87, heart rate 101, temperature 99.2, respiratory rate 18, pulse oximetry 95% on room air. INTAKE AND OUTPUT: Last 24 hours, 1478 and 975. Weight is 82.2 kg. GENERAL: The patient is lying in bed, comfortable, in no acute distress. She is awake, alert, and oriented times three, pleasant, cooperative, less pale-appearing today compared to yesterday. HEENT: Normocephalic, atraumatic. Moist oral mucosa. Good dentition. Eyes: Extraocular movements intact. Pupils equal and reactive to light. NECK: Supple. Trachea midline. Large neck. I could not appreciate jugular venous distention (JVD) secondary to large neck. Right internal jugular (IJ) is in place. Surrounding area is clean and dry without erythematous changes. CHEST: Symmetric chest rise. No accessory muscle use. Breath sounds were diminished. Bilateral lung bases still dull to percussion. HEART: Regular rate and rhythm with normal S1, S2. ABDOMEN: Is protuberant, nontender, nondistended. Bowel sounds present. No guarding. No rebound. Ecchymotic change on her lower quadrant is improved. EXTREMITIES: Still has 1 to 2+ pitting edema extending to her sacral region. Her right foot is wrapped. Able to move all the rest of her toes. NEUROLOGICAL: She is alert, awake, and oriented times three. No focal deficits appreciated. PSYCHIATRIC: Pleasant and cooperative with normal affect. LABORATORY DATA: WBC 21.8 improved from yesterday of 22, hemoglobin 8, hematocrit 25.4 no significant change compared to yesterday, platelets 416, neutrophil 88.7. Sodium 135, potassium 4.1, chloride 102, carbon dioxide 27, BUN 24, creatinine 1.12 (yesterday it was 24 and 1.24), glucose 329, calcium 7.5, magnesium 1.9, total bilirubin 0.2, AST 70, ALT 183, alkaline phosphatase 630 improved to yesterday, CRP is 12.9 (yesterday it was 17.4), fingerstick glucose has been ranging anywhere from 125-368. Blood culture so far has grown streph anginosus. The rest of the cultures are currently pending. Blood culture is negative after 24 hours. IMPRESSION AND PLAN: Ms. Kingston is a 35-year-old female with history of type 1 diabetes with a history of osteomyelitis, status post amputation. Admitted for septic shock secondary to right foot abscess. 1. Septic shock, resolved. Her blood pressure actually has been ranging high this morning. Will continue to monitor blood pressure for now. If continues to be elevated, will consider adding Norvasc for better blood control. The patient takes Lisinopril 20 mg daily at home. 2. Transaminitis. Secondary to septic shock. Resolving. Continue to monitor. 3. Acute kidney injury. Again, secondary to septic shock. Continues to be improving. Will hold off on restarting Lisinopril at this time due to her initial septic state. 4. Anemia. She is status post 1 unit of packed red blood cells. Her hemoglobin is not significantly changed compared to yesterday. Currently, has no evidence of bleeding. Continue to monitor for now. No need for emergent transfusion at this time. 5. History of osteomyelitis. She is status post right 4th toe amputation and underwent incision and drainage (I and D) with Dr. Black. 6. Type 1 diabetes. Continue carbohydrate-consistency diet, insulin sliding scale, and basal insulin. The patient takes 30 units of Levemir long-acting at home. Will consider increasing her Levemir if continues to be elevated. 7. Leukocytosis. Improving. Secondary to septic shock. 8. Deep venous thrombosis (DVT) prophylaxis. Sequential compression devices (SCDs) and thromboembolism deterrents (TEDs). No pharmacological intervention secondary to severe anemia. My preceptor for this patient encounter was Dr. Buster Woodard. The preceptor was physically present in the building during the encounter and was fully available. As needed, all aspects of the patient interview, examination, medical decision making process, and medical care plan development were reviewed and approved by the preceptor. The preceptor is aware and concurs with the plan as stated in the body of this note and will attest to such by his/her cosignature. ERICK
[2016-09-24 20:30] VITALS: BP 142/82
[2016-09-24] MEDS: ACETAMINOPHEN TAB 650MG DOSE (2X325MG) PO PRN (20:32)
[2016-09-25] VITALS (8 sets, daily range): BP systolic 118–170; BP diastolic 78–106
[2016-09-25] MEDS: PIPERACILLIN/TAZOBACTAM SOD 3.375 GM in D5W MINI-BAG PLUS 50 ML IV SCH ×4 (02:02→20:53)
[2016-09-25] MEDS: ACETAMINOPHEN TAB 650MG DOSE (2X325MG) PO PRN (03:22)
[2016-09-25] MEDS: SODIUM CHLORIDE 0.9% INJ 10 ML SYR IV PRN (03:22)
[2016-09-25] MEDS: SODIUM CHLORIDE 0.9% INJ 10 ML SYR IV SCH ×3 (06:00→22:30)
[2016-09-25 06:17] LABS: MEAN CORPUSCULAR HEMOGLOBIN 26.7 pg (27.0-33.0); MEAN CORPUSCULAR HGB CONC 30.4 g/dl (32.0-36.5); MEAN CORPUSCULAR VOLUME 87.7 fl (80.0-96.0); RED CELL DISTRIBUTION WIDTH 14.5 % (11.5-14.5); WHITE BLOOD COUNT 14.2 K/mm3 (4.0-10.0)
[2016-09-25 06:54] LABS: ANION GAP 6 MEQ/L (8-16); BLOOD UREA NITROGEN 17 MG/DL (7-18); CALCIUM LEVEL 7.5 MG/DL (8.5-10.1); CARBON DIOXIDE LEVEL 28 MEQ/L (21-32); CHLORIDE LEVEL 104 MEQ/L (98-107); CREATININE FOR GFR 0.74 MG/DL (0.55-1.02); GLOMERULAR FILTRATION RATE > 60.0 (>60); GLUCOSE, FASTING 225 MG/DL (70-105); POTASSIUM SERUM 3.8 MEQ/L (3.5-5.1); SODIUM LEVEL 138 MEQ/L (136-145)
[2016-09-25] MEDS: HumaLOG INSULIN (NovoLOG) PER UNIT SC SCH ×4 (08:21→20:53)
[2016-09-25] MEDS: LISINOPRIL 10 MG TAB PO SCH (08:22)
[2016-09-25] MEDS: LACTOBACILLUS ACIDOPHILUS CAP (BACID) PO SCH ×2 (08:22→20:54)
[2016-09-25] MEDS ORDERED: LEVEMIR (INSULIN DETEMIR) 1 UNITS/0.01ML SC SCH (09:00)
[2016-09-25] MEDS ORDERED: VANCOMYCIN HCL 500 MG/10 ML VIAL (J3370) As Ordered ONE (09:38)
[2016-09-25] MEDS ORDERED: BUPIVACAINE HCL 0.5% 30 ML VIAL As Ordered ONE (09:38)
[2016-09-25] MEDS ORDERED: LIDOCAINE 2% MDV 20 ML VIAL As Ordered ONE (09:38)
[2016-09-25] MEDS ORDERED: VANCOMYCIN 1000 MG/20 ML VIAL (J3370) As Ordered ONE (09:38)
[2016-09-25] MEDS: VANCOMYCIN HCL 1,000 MG, VIAL MATE ADAPTER 1 EACH in D5W 250 ML IV SCH (10:03)
--- NOTE | 2016-09-25 13:29 | IPN ---
DATE: 09/25/2016 SUBJECTIVE: This is a 35-year-old female who was seen and examined at bedside. Last night, she was transferred out of the intensive care unit (ICU) to medical-surgical. She continues to report poor appetite, but food choice is limited. Denies any chest pain, shortness of breath, palpitations, fevers, chills, nausea, vomiting, diarrhea, constipation. Had bowel movements and they were formed. Currently, there is plan for her to return to the operating room (OR) this afternoon with Dr. Black. OBJECTIVE: VITAL SIGNS: Blood pressure 169/92, heart rate 97, respiratory rate 16, pulse oximetry 94% on room air, temperature 99, temperature maximum (T-max) 100.2. GENERAL: The patient is lying in bed, comfortable, in no acute distress. Alert , awake, oriented times three, pleasant, cooperative. at bedside. HEENT: Normocephalic, atraumatic. Moist oral mucosa. Good dentition. Eyes: Extraocular movements intact. Pupils equal and reactive to light. NECK: Supple. Trachea midline. Large neck. Right internal jugular (IJ) is in place, clean and dry. Difficult to appreciate jugular venous distention (JVD) secondary to large neck size. CHEST: Symmetric chest rise. No accessory muscle use. Breath sounds diminished bilateral lung bases, unchanged compared to prior visits. HEART: Regular rate and rhythm with normal S1, S2. ABDOMEN: Is protuberant, nontender, nondistended. Bowel sounds present. No guarding. No rebound. Persistent ecchymotic change by her right lower quadrant. EXTREMITIES: 1+ pitting bilateral lower extremities with sacral edema. Right foot is currently wrapped. NEUROLOGICAL: She is alert, awake, and oriented times three. No focal deficits appreciated. PSYCHIATRIC: Pleasant and cooperative with normal affect. LABORATORY DATA: WBC 14.2 improved from yesterday of 21.8, hemoglobin 7.4 mildly decreased from yesterday of 8, hematocrit 24.2, and platelets 421. Sodium 138, potassium 3.8, chloride 104, carbon dioxide 28, BUN 17 and creatinine 0.74 improved from yesterday of 24 and 1.12, glucose 225, calcium 7.5, magnesium 2, CRP 9 improved from yesterday of 12.9. Fingerstick glucose had been ranging anywhere from 100 to 167. Stool occult is negative. Wound culture except for Strep anginosus, rest is pending. IMPRESSION AND PLAN: Ms. Kingston is a 35-year-old female with history of type 1 diabetes admitted for right foot abscess. 1. Right foot abscess. She is status post incision and drainage. She continues to be improving each day. Currently, there is plan for her to return to the OR and placement of wound Vac after. For now, because wound culture is currently pending, will continue with broad spectrum antibiotic of vancomycin and Zosyn. Greatly appreciate Dr. Black's assistance. She is currently on day 4 of Zosyn and vancomycin. 2. Transaminitis. Secondary to septic shock. Resolving. 3. Acute kidney injury. Secondary to septic shock secondary to right foot abscess. Resolved. 4. Hypertension. The patient initially was hypotensive requiring Levophed. However, since yesterday, her blood pressure has been ranging high. Therefore, we have resumed her lisinopril. 5. Anemia. She is status post 1 unit of packed red blood cells since admission. Her stool occult is negative. Hemoglobin is trending down today compared to yesterday. Will hold off on transfusion at this time. Will follow up repeat blood work tomorrow. If continues to be decreased, will consider transfusion. 6. History of osteomyelitis. Status post right toe amputation. 7. Type 1 diabetes. Continue carbohydrate-consistency diet, insulin sliding scale and basal insulin. She is currently on 25 units of Levemir, normally takes 30 at home. 8. Edema. Secondary to hypoalbuminemia causing third spacing. Again, encourage patient to have good by mouth intake. 9. Leukocytosis. Secondary to infection. This is improving significantly. She is on broad spectrum antibiotics as mentioned. Antibiotic choice will be narrowed based whenever her wound culture returns. 10. Deep venous thrombosis (DVT) prophylaxis. Sequential compression devices (SCDs) and thromboembolism deterrents (TEDs). No pharmacological intervention secondary to severe anemia. My preceptor for this patient encounter was Dr. Buster Woodard. The preceptor was physically present in the building during the encounter and was fully available. As needed, all aspects of the patient interview, examination, medical decision making process, and medical care plan development were reviewed and approved by the preceptor. The preceptor is aware and concurs with the plan as stated in the body of this note and will attest to such by his/her cosignature. ERICK
[2016-09-25] MEDS ORDERED: MIDAZOLAM INJ 2 MG/2 ML VIAL (J2250) As Ordered ONE (17:24)
[2016-09-25] MEDS ORDERED: fentaNYL 100 MCG/2 ML INJECTION (J3010) As Ordered ONE (17:24)
[2016-09-25] MEDS ORDERED: PROPOFOL 200 MG/20 ML VIAL As Ordered ONE (17:24)
[2016-09-25] MEDS ORDERED: PERCOCET 5MG/325MG TAB PO PRN (18:45)
[2016-09-25] MEDS ORDERED: ONDANSETRON 4MG/2ML VIAL (J2405) IV PRN (18:45)
[2016-09-25] MEDS ORDERED: D5W/0.45% SODIUM CHLORIDE 1,000 ML IV SCH (18:45)
[2016-09-25] MEDS ORDERED: fentaNYL 100 MCG/2 ML INJECTION (J3010) IV PRN (18:45)
--- NOTE | 2016-09-25 22:39 | RO ---
DATE OF PROCEDURE: 09/25/2016 PREOPERATIVE DIAGNOSIS: Infected right foot. POSTOPERATIVE DIAGNOSIS: Infected right foot. OPERATIVE PROCEDURE: Debridement of muscle and fascia right foot with application of wound Vac. SURGEON: Meng Black DPM SCREEDMAN/LABORER: None ANESTHESIA: Local Monitored anesthesia care (MAC). ESTIMATED BLOOD LOSS: 10 mL. IRRIGATION: 3 liters of dilute vancomycin solution with pulsatile lavage system. HEMOSTASIS: None. IMPLANTABLES: Fifteen 5 mm vancomycin beads. DESCRIPTION OF OPERATION: On 09/25/2016, this 35-year-old white female was taken from her hospital room to the operating room and placed on the operating room table in the supine position. Following the induction of IV sedation and local and regional anesthesia, attention was directed to the patient's right foot. The wound was explored with a curette and debrided with a scalpel. Necrotic skin was noted on the distal, medial and lateral margins of the wound and these were debrided. Debridement was the carried through the plantar fascia to the muscular layer and all the necrotic tissue was debrided. The second toe stitches were pulled since discharge was noted from this site as well. Utilizing 3 liters of dilute vancomycin solution, the wound was thoroughly irrigated. Fifteen 5 mm vancomycin beads were then placed in the operative wound. The deep plantar wound had white foam placed in the wound and the fourth toe and plantar margin had black foam creating a bridge onto the dorsal surface of the foot utilizing a window technique. The wound Vac was then applied at 175 mmHg. Intermittent pressure 5 minutes on, 2 minutes off. The wound Vac was noted to be operating satisfactorily. A toe pocket had to be created on the toes, however, the digits were noted to have excellent capillary return. The patient having apparently tolerated the surgical procedure well, was taken from the operating room to the recovery room, vital signs stable. The patient's questions were answered. Postoperative instructions were given upon discharge.
[2016-09-26] VITALS (7 sets, daily range): BP systolic 144–168; BP diastolic 75–100
[2016-09-26] MEDS: PIPERACILLIN/TAZOBACTAM SOD 3.375 GM in D5W MINI-BAG PLUS 50 ML IV SCH ×4 (02:40→19:48)
[2016-09-26] MEDS: ACETAMINOPHEN TAB 650MG DOSE (2X325MG) PO PRN ×2 (02:44→20:59)
[2016-09-26] MEDS: SODIUM CHLORIDE 0.9% INJ 10 ML SYR IV SCH ×3 (04:57→21:00)
[2016-09-26 05:23] LABS: MEAN CORPUSCULAR HEMOGLOBIN 26.6 pg (27.0-33.0); MEAN CORPUSCULAR HGB CONC 30.6 g/dl (32.0-36.5); RED CELL DISTRIBUTION WIDTH 14.6 % (11.5-14.5); WHITE BLOOD COUNT 14.2 K/mm3 (4.0-10.0)
[2016-09-26 05:37] LABS: ANION GAP 8 MEQ/L (8-16); BLOOD UREA NITROGEN 11 MG/DL (7-18); CALCIUM LEVEL 7.7 MG/DL (8.5-10.1); CARBON DIOXIDE LEVEL 27 MEQ/L (21-32); CHLORIDE LEVEL 104 MEQ/L (98-107); CREATININE FOR GFR 0.68 MG/DL (0.55-1.02); GLOMERULAR FILTRATION RATE > 60.0 (>60); GLUCOSE, FASTING 119 MG/DL (70-105); MAGNESIUM LEVEL 1.8 MG/DL (1.8-2.4); POTASSIUM SERUM 3.8 MEQ/L (3.5-5.1); SODIUM LEVEL 139 MEQ/L (136-145)
[2016-09-26] MEDS: HumaLOG INSULIN (NovoLOG) PER UNIT SC SCH ×4 (08:07→20:53)
[2016-09-26] MEDS: LACTOBACILLUS ACIDOPHILUS CAP (BACID) PO SCH ×2 (08:07→20:58)
[2016-09-26] MEDS: LEVEMIR (INSULIN DETEMIR) 1 UNITS/0.01ML SC SCH (08:08)
[2016-09-26] MEDS: LISINOPRIL 10 MG TAB PO SCH (08:10)
[2016-09-26] MEDS: VANCOMYCIN HCL 1,000 MG, VIAL MATE ADAPTER 1 EACH in D5W 250 ML IV SCH ×2 (09:18→20:58)
[2016-09-26] MEDS ORDERED: VANCOMYCIN HCL 1,000 MG, VIAL MATE ADAPTER 1 EACH in D5W 250 ML IV ONE (10:00)
[2016-09-26] MEDS: SODIUM CHLORIDE 0.9% INJ 10 ML SYR IV PRN (11:51)
--- NOTE | 2016-09-26 12:12 | PHACANCOPD ---
PHARMACY VANCOMYCIN DOSING Pt Demographics Demographics Patient Age:35 , Weight:82.000 , Gender: female Adjusted Body Weight Date: 09/22/16, Adjusted Body Weight: Kg Events Past 24 Hours Events Past 24 Hours: YES: Change in CrCl, Pending Procedures Vancomycin Vancomycin indication: FASCIITIS Vancomycin Target Ranges: 15-20 mcg/ml Vancomycin Load Y/N: Yes Load Dose Date Time Vancomycin Load Dose: 2g Date: 09/21/16 Time: 1900 Vancomycin Dose Date: 09/26/16. Current Vancomycin Dose: [2GM AT 10AM THEN 1GM Q12H] Date: 09/22/16. Current Vancomycin Dose: [1g IV Q12H] Intermittent Dosing?: No Labs Labs Item Value Date Time White Blood Count 21.8 K/mm3 H 09/24/16 0440 White Blood Count 14.2 K/mm3 H 09/25/16 0607 White Blood Count 14.2 K/mm3 H 09/26/16 0503 Creatinine 0.74 MG/DL 09/25/16 0607 Creatinine 1.12 MG/DL H 09/24/16 0440 Creatinine 0.68 MG/DL 09/26/16 0503 Vancomycin Level Trough 20.4 UG/ML H 09/22/162007 Vancomycin Level Trough 5.7 UG/ML L 09/26/16 0806 Vital Signs Label Value Date Time Patient Temperature 99.9 degrees F 09/25/16 2300 Temperature Source Temporal 09/25/16 2300 Patient Temperature 99.3 degrees F 09/26/16 0200 Temperature Source Temporal 09/26/16 0200 Patient Temperature 99.2 degrees F 09/26/16 0930 Temperature Source Temporal 09/26/16 0930 Micro Microbiology 09/21/16 Blood Culture - Preliminary, Resulted No Growth after 72 hours. All specime... 09/21/16 Blood Culture - Preliminary, Resulted No Growth after 72 hours. All specime... 09/25/16 Stool Occult Blood (MARGARITO) - Final, Complete 09/21/16 Gram Stain - Final, Resulted 09/21/16 Wound Culture - Final, Resulted Strep Anginosus (S.milleri) 09/21/16 Anaerobic Culture, Resulted Pending Creatinine Clearance Date:09/22/16. Estimated Creatinine Clearance: [~73ml/min]. Pending Labs Vancomycin trough scheduled 09/23/16 @0800 Assessment and Plan Maintaining Current Dose?: No Reason for dose change: Trough too low Pharmacist Note Pharmacist Note 09/26: Patient's trough came back at 5.7 this morning. Her kidney function has improved and is back at baseline which explains the low trough. She was given 2 grams of Vancomycin this morning and switched back to Vancomycin 1gm IV q12h. She still has micro pending at this time, but once it's finalized we will recommend narrowing her antibiotic therapy. She was scheduled for the OR yesterday for wound VAC placement and she has undergone I&D for her wound infection. Patient is still running low grade fever but her WBC continues to improve. We will continue to monitor and make adjustments as necessary. Date: 09/22/16. Pharmacist note: I have scheduled a trough to be drawn today, @2000, due to apparent MYLENE (scr 1.09 yesterday, and scr 1.38 today) to ensure levels are not supratherapeutic. The patient's output over the past 24hrs appears to be minimal. We will follow-up on vancomycin level and adjust dosing if needed. AR[facility] Sep 26, 2016 12:12
--- NOTE | 2016-09-26 13:37 | IPN ---
DATE: 09/26/2016 SUBJECTIVE: This is a 35-year-old female who was seen and examined at bedside. Overnight, she underwent debridement of her right foot with placement of wound VAC. Tolerated the procedure well without complications. This morning feels better. Denies any chest pain, shortness of breath, fevers, chills, nausea, vomiting, diarrhea, constipation. Reports good oral intake. Is urinating an adequate amount without dysuria, urinary urgency, frequency. OBJECTIVE: VITAL SIGNS: Blood pressure 164/94, heart rate 82, temperature 99.2, respiratory rate 20, temperature maximum (T-max) 99.9. Intake and output the last 24 hours: 665 and 425, one bowel movement documented. GENERAL: The patient is sitting in bed, comfortable, in no acute distress. She is alert, awake, oriented times three, pleasant, cooperative. HEENT: Normocephalic, atraumatic. Moist oral mucosa. Good dentition. No thrush or lesions appreciated. Eyes: Extraocular movements intact. Pupils equal and reactive to light. NECK: Supple. Trachea midline. No jugular venous distention (JVD). Right internal jugular (IJ) is in place, clean and dry. Difficult to appreciate jugular venous distention (JVD) secondary to large neck size. CHEST: Symmetric chest rise. No accessory muscle use. Breath sounds diminished bilateral lung bases, unchanged compared to prior visits. HEART: Regular rate and rhythm with normal S1, S2. ABDOMEN: Is protuberant, nontender, nondistended. Bowel sounds present. No guarding. No rebound. Persistent ecchymotic change by her right lower quadrant but nontender. EXTREMITIES: 1+ pitting edema in bilateral lower extremities. Right foot is status placement of wound VAC. NEUROLOGICAL: She is alert, awake, and oriented times three. No focal deficits appreciated. PSYCHIATRIC: Pleasant and cooperative with normal affect. LABORATORY DATA: WBC 14.2, hemoglobin 7.5, hematocrit 24.5, unchanged compared to yesterday, platelets 460. Sodium 139, potassium 3.8, chloride 104, carbon dioxide 27, BUN 11 and creatinine 0.68. Fasting glucose 119, calcium 7.7, magnesium 1.8, CRP 7.05, improved from yesterday of 9. Fingerstick glucose ranged anywhere from 51 to 228. Would culture, anaerobic culture is currently pending. Stool occult blood is negative. IMPRESSION AND PLAN: Ms. Kingston is a pleasant 35-year-old female with history of type 1 diabetes admitted for right foot abscess. 1. Right foot abscess. She is status post incision and drainage. Underwent further debridement of her right foot last night with wound VAC placement. Clinically, she is improving each day. We will continue vancomycin as her final wound culture is currently pending, currently on day 5 of Zosyn and vancomycin. Greatly appreciate Dr. Black's assistance. 2. Transaminitis. Improving from recent laboratories from 09/24/2016. We will recheck levels tomorrow. 3. Acute kidney injury. Secondary to septic shock. Resolved. 4. Hypertension. She was hypotensive on admission and required Levophed. Her blood pressure has improved and actually has been in the high range. Her Lisinopril has been resumed. If continues to be elevated, we will consider adding Norvasc. 5. Anemia. She is status post 1 unit of packed red blood cells. No evidence of bleeding. Continue to monitor for now. No need for emergent transfusion. Repeat level tomorrow. If continues to decrease, we will consider transfusion. 6. History of osteomyelitis. She is status post right toe amputation. 7. Type 1 diabetes. Continue insulin sliding scale and basal insulin. 8. Edema. Secondary to hypoalbuminemia secondary to third spacing. The patient may have whatever diet she requests, as she requires good oral intake. 9. Leukocytosis, secondary to infection from her right foot. Continue antibiotics as mentioned above. Currently, we are awaiting results from her wound culture that was performed on admission. 10. Hypoglycemia. She did have one episode of fingerstick in the 50 range. Expect this to be improving now that she is back on her diet post surgery. We will monitor for now. 11. Deep venous thrombosis (DVT) prophylaxis. Sequential compression devices (SCDs) and thromboembolism deterrents (TEDs). No pharmacological intervention secondary to severe anemia. My preceptor for this patient encounter was Dr. Buster Woodard. The preceptor was physically present in the building during the encounter and was fully available. As needed, all aspects of the patient interview, examination, medical decision making process, and medical care plan development were reviewed and approved by the preceptor. The preceptor is aware and concurs with the plan as stated in the body of this note and will attest to such by his/her cosignature. ERICK
[2016-09-26] MEDS: amLODIPine 5 MG TAB PO SCH (14:42)
[2016-09-26] MEDS ORDERED: FUROSEMIDE 40 MG/4 ML VIAL (J1940) IV ONE (19:00)
--- NOTE | 2016-09-26 20:10 | REPUSA ---
Clinical statement: Pain. Comparison: None. Findings: A nonobstructive bowel gas pattern is noted. There is normal amount of stool appreciated wi thin the colon. There is no free air. There are no abnormal masses or calcifications. The osseous str uctures and soft tissues are unremarkable. Impression: No acute finding.
[2016-09-26 20:30] LABS: ALBUMIN 1.2 GM/DL (3.2-5.2); ALBUMIN/GLOBULIN RATIO 0.29 (1.00-1.93); ALKALINE PHOSPHATASE 532 U/L (45-117); ALT/SGPT 76 U/L (12-78); ANION GAP 6 MEQ/L (8-16); AST/SGOT 21 U/L (15-37); BILIRUBIN,TOTAL 0.1 MG/DL (0.2-1.0); BLOOD UREA NITROGEN 11 MG/DL (7-18); CALCIUM LEVEL 7.4 MG/DL (8.5-10.1); CARBON DIOXIDE LEVEL 29 MEQ/L (21-32); CHLORIDE LEVEL 106 MEQ/L (98-107); CREATININE FOR GFR 0.69 MG/DL (0.55-1.02); GLOMERULAR FILTRATION RATE > 60.0 (>60); GLUCOSE, FASTING 89 MG/DL (70-105); SODIUM LEVEL 141 MEQ/L (136-145); TOTAL PROTEIN 5.3 GM/DL (6.4-8.2)
[2016-09-27 02:00] VITALS: BP 150/89
[2016-09-27] MEDS: PIPERACILLIN/TAZOBACTAM SOD 3.375 GM in D5W MINI-BAG PLUS 50 ML IV SCH ×4 (02:45→20:11)
[2016-09-27] MEDS: SODIUM CHLORIDE 0.9% INJ 10 ML SYR IV SCH ×3 (05:07→21:19)
[2016-09-27 05:40] LABS: MEAN CORPUSCULAR HEMOGLOBIN 27.2 pg (27.0-33.0); MEAN CORPUSCULAR HGB CONC 31.1 g/dl (32.0-36.5); MEAN CORPUSCULAR VOLUME 87.5 fl (80.0-96.0); RED CELL DISTRIBUTION WIDTH 14.6 % (11.5-14.5); WHITE BLOOD COUNT 11.8 K/mm3 (4.0-10.0)
[2016-09-27 05:57] LABS: ALBUMIN 1.1 GM/DL (3.2-5.2); ALBUMIN/GLOBULIN RATIO 0.27 (1.00-1.93); ALKALINE PHOSPHATASE 474 U/L (45-117); ALT/SGPT 67 U/L (12-78); ANION GAP 7 MEQ/L (8-16); AST/SGOT 17 U/L (15-37); BILIRUBIN,TOTAL 0.2 MG/DL (0.2-1.0); BLOOD UREA NITROGEN 10 MG/DL (7-18); CALCIUM LEVEL 7.7 MG/DL (8.5-10.1); CARBON DIOXIDE LEVEL 29 MEQ/L (21-32); CHLORIDE LEVEL 104 MEQ/L (98-107); CREATININE FOR GFR 0.71 MG/DL (0.55-1.02); GLOMERULAR FILTRATION RATE > 60.0 (>60); GLUCOSE, FASTING 280 MG/DL (70-105); MAGNESIUM LEVEL 1.7 MG/DL (1.8-2.4); SODIUM LEVEL 140 MEQ/L (136-145); TOTAL PROTEIN 5.2 GM/DL (6.4-8.2)
[2016-09-27 06:00] VITALS: BP 162/104
[2016-09-27] MEDS ORDERED: FUROSEMIDE 20 MG/2 ML VIAL (J1940) IV ONE (06:00)
[2016-09-27] MEDS: SODIUM CHLORIDE 0.9% INJ 10 ML SYR IV PRN ×2 (06:06→09:02)
[2016-09-27] MEDS: HumaLOG INSULIN (NovoLOG) PER UNIT SC SCH ×4 (08:57→21:00)
[2016-09-27] MEDS: LACTOBACILLUS ACIDOPHILUS CAP (BACID) PO SCH ×2 (08:57→20:11)
--- NOTE | 2016-09-27 08:58 | REP ---
Complete abdominal ultrasound: Comparison is the CT of the abdomen and pelvis dated 09/22/2016. There is a negative Schmid's sign to transducer pressure. The gallbladder is partially contracted and not optimally demonstrated. Upon review of the CT scan there is a faintly visible ring-shaped gallbladder calculus measuring approximately 12 mm diameter. This cannot be identified by ultrasound today, likely because of the partially contracted gallbladder. There is no gallbladder wall thickening or pericholecystic fluid. There is no intrahepatic or extrahepatic biliary duct dilatation, the common duct measures 3.3 mm diameter. The liver appears enlarged, however the hepatic parenchyma is homogeneous except for two small 1 cm echogenic foci in the right lobe, possibly small hemangiomas. These are not identified on the comparison CT that was performed without IV contrast. The visualized portions of the pancreas are unremarkable. The spleen measures 12.4 cm craniocaudad length is upper normal size and homogeneous. The kidneys are normal size. The right kidney measures 14.2 x 7.9 of 5.5 cm. Left kidney measures 15.0 x 6.7 x 6.2 cm. There is no hydronephrosis, calculus, mass or cyst on the right on the left. There is no abdominal aortic aneurysm. The diameter measures 2.2 cm below the diaphragm and tapers to 1.9 cm at the renal artery level and 1.6 cm at the bifurcation. There are bilateral pleural effusions. Impression: Probable gallbladder calculus. Gallbladder is partially collapsed. Two 1 cm echogenic foci in the right lobe of the liver, possibly small hemangiomas. Hepatomegaly. Spleen is upper normal size and otherwise unremarkable. There is no hydronephrosis. There is no abdominal aortic aneurysm. There are bilateral pleural effusions. Signed by Ruben Williamson MD 09/27/2016 08:50 A
[2016-09-27] MEDS: LISINOPRIL 10 MG TAB PO SCH (09:00)
[2016-09-27] MEDS: VANCOMYCIN HCL 1,000 MG, VIAL MATE ADAPTER 1 EACH in D5W 250 ML IV SCH ×2 (09:00→21:18)
[2016-09-27] MEDS ORDERED: FUROSEMIDE 40 MG/4 ML VIAL (J1940) IV ONE (09:00)
[2016-09-27] MEDS: amLODIPine 5 MG TAB PO SCH (09:00)
[2016-09-27] MEDS: LEVEMIR (INSULIN DETEMIR) 1 UNITS/0.01ML SC SCH (09:01)
--- NOTE | 2016-09-27 12:51 | IPNPDOC ---
Text Note Date of Service The patient was seen on 09/27/16. NOTE Subjective: Patient feels well. States that the swelling is going down. Denies any abdominal pain. No nausea or vomiting. Objective: Vitals: (see below) General: No acute distress, laying comfortably in bed. HEENT: Moist mucous membranes. Neck: No JVD or lymphadenopathy Cardiac: RRR, No murmurs Pulm: Coarse crackles at the bases b/l. No wheezing, rhonchi Abd: NT/ND + BS Ext: 1+ pitting edema bilateral lower extremities. No cyanosis. Right foot distal pulses intact. Wound VAC in place. Labs (see below) Images: Assessment/Plan 1. Status post Septic shock secondary to infected right diabetic foot with fasciitis. Status post norepinephrine. Wound culture with Strep Anginosis and Porphyromonas Asaccharolytica. Continue Vanco and Zosyn. Leukocytosis and CRP improving. Wound VAC in place. Appreciate Dr. Black input. 2. Hypertension- uncontrolled; lisinopril increased to 30 mg. On amlodipine. Has received multiple doses of Lasix for diuresis. 3. Type 1 Diabetes mellitus- blood sugars controlled. Continue Levemir. 4. Acute kidney injury and transaminitis- improving. Secondary to septic shock. Abdominal ultrasound pending. Avoid nephrotoxins. 5. Acute on chronic anemia- status post 2 units PRBC. No active bleeding at this time. Stool: Negative. Recent menstrual cycle. Likely has some degree of bone marrow suppression from recent septic shock. 6. History of osteoma O's with the right toe amputation 7. Moderate to severe protein calorie malnutrition - started on ensure DVT prophy: SCDs VS,Fishbone, I+O VS, Fishbone, I+O Laboratory Tests 09/26/16 19:50 Calcium Level 7.4 L, Aspartate Amino Transf (AST/SGOT) 21, Alanine Aminotransferase (ALT/SGPT) 76, Alkaline Phosphatase 532 H, Total Bilirubin 0.1 L, Total Protein 5.3 L, Albumin 1.2 L 09/27/16 05:10 Calcium Level 7.7 L, Aspartate Amino Transf (AST/SGOT) 17, Alanine Aminotransferase (ALT/SGPT) 67, Alkaline Phosphatase 474 H, Total Bilirubin 0.2 #, Total Protein 5.2 L, Albumin 1.1 L, Red Blood Count 2.76 L, Mean Corpuscular Volume 87.5, Mean Corpuscular Hemoglobin 27.2, Mean Corpuscular Hemoglobin Concent 31.1 L, Red Cell Distribution Width 14.6 H Vital Signs Date Time Temp Pulse Resp B/P Pulse Ox O2 Delivery O2 Flow Rate FiO2 09/27/16 09:00 182/102 09/27/16 09:00 99 09/27/16 06:00 98.4 21 96 Room Air I&O- Last 24 Hours up to 6 AM 09/27/16 05:59 Intake Total 2250 ml Output Total 5500 ml Balance -3250 ml NAYA DODD MD Sep 27, 2016 12:51
[2016-09-27 14:00] VITALS: BP 145/85
--- NOTE | 2016-09-27 17:14 | REP ---
Right foot two views: Comparisons 09/21/2016. The fourth digit has been amputated. This is unchanged. There is soft tissue edema over the dorsum and along the plantar surface. This is unchanged. Multiple radiopaque pellets are noted within the soft tissues along the plantar surface as an interval change. Tubing is superimposed over the dorsum. Signed by Ruben Williamson MD 09/27/2016 05:06 P
[2016-09-27] MEDS: ENOXAPARIN 40 MG/0.4 ML SYRINGE (J1650) SC SCH (21:18)
[2016-09-27 22:00] VITALS: BP 157/91
[2016-09-28] MEDS: SODIUM CHLORIDE 0.9% INJ 10 ML SYR IV SCH ×3 (03:00→21:48)
[2016-09-28] MEDS: PIPERACILLIN/TAZOBACTAM SOD 3.375 GM in D5W MINI-BAG PLUS 50 ML IV SCH ×3 (03:00→15:34)
[2016-09-28 05:59] LABS: MEAN CORPUSCULAR HEMOGLOBIN 27.2 pg (27.0-33.0); MEAN CORPUSCULAR HGB CONC 31.3 g/dl (32.0-36.5); MEAN CORPUSCULAR VOLUME 86.8 fl (80.0-96.0); RED CELL DISTRIBUTION WIDTH 14.5 % (11.5-14.5)
[2016-09-28 06:00] VITALS: BP 155/85
[2016-09-28 06:13] LABS: ALBUMIN 1.1 GM/DL (3.2-5.2); ALBUMIN/GLOBULIN RATIO 0.23 (1.00-1.93); ALKALINE PHOSPHATASE 395 U/L (45-117); ALT/SGPT 47 U/L (12-78); ANION GAP 7 MEQ/L (8-16); AST/SGOT 15 U/L (15-37); BILIRUBIN,TOTAL 0.2 MG/DL (0.2-1.0); BLOOD UREA NITROGEN 11 MG/DL (7-18); CALCIUM LEVEL 7.9 MG/DL (8.5-10.1); CARBON DIOXIDE LEVEL 31 MEQ/L (21-32); CHLORIDE LEVEL 99 MEQ/L (98-107); CREATININE FOR GFR 0.74 MG/DL (0.55-1.02); GLOMERULAR FILTRATION RATE > 60.0 (>60); GLUCOSE, FASTING 236 MG/DL (70-105); MAGNESIUM LEVEL 1.6 MG/DL (1.8-2.4); POTASSIUM SERUM 3.4 MEQ/L (3.5-5.1); SODIUM LEVEL 137 MEQ/L (136-145); TOTAL PROTEIN 5.9 GM/DL (6.4-8.2)
[2016-09-28] MEDS ORDERED: POTASSIUM CHLORIDE 10 MEQ SR TABLET PO ONE (08:00)
[2016-09-28] MEDS: LACTOBACILLUS ACIDOPHILUS CAP (BACID) PO SCH ×2 (08:21→20:38)
[2016-09-28] MEDS: amLODIPine 5 MG TAB PO SCH (08:22)
[2016-09-28] MEDS: LISINOPRIL 10 MG TAB PO SCH (08:23)
[2016-09-28] MEDS: LEVEMIR (INSULIN DETEMIR) 1 UNITS/0.01ML SC SCH (08:24)
[2016-09-28] MEDS: HumaLOG INSULIN (NovoLOG) PER UNIT SC SCH ×4 (08:25→21:00)
[2016-09-28] MEDS ORDERED: VANCOMYCIN 1000 MG/20 ML VIAL (J3370) As Ordered ONE (10:01)
[2016-09-28] MEDS: VANCOMYCIN HCL 1,000 MG, VIAL MATE ADAPTER 1 EACH in D5W 250 ML IV SCH ×2 (10:04→20:38)
[2016-09-28] MEDS: MAG SULF 1GM/100ML (MAG RUN) 1 GM in APPROPRIATE DILUENT 1 EA IV SCH ×2 (11:31→13:22)
--- NOTE | 2016-09-28 13:44 | IPN ---
DATE OF VISIT: 09/28/2016 SUBJECTIVE: This is a 35-year-old female who was seen and examined at bedside. Overnight, no reported acute events. Yesterday, she was given 1 unit of packed red blood cells. Was started on Lovenox. Was reporting worsening abdominal distention and was given Lasix. States that after she diuresed, her abdominal distention improved significantly. Denies any chest pain, shortness of breath, fevers, chills, nausea, vomiting, diarrhea, constipation, abnormal bleeding. OBJECTIVE: VITAL SIGNS: Blood pressure 155/85, heart rate 94, temperature 98.4, respiration rate 18, pulse oximetry 96% on room air. INTAKE AND OUTPUT: The last 24 hours: 2190 and 5100, net negative of 2.9 liters. Weight is 76.4. Yesterday, it was 81 kg. GENERAL: The patient is sitting in bed, comfortable, in no acute distress. Father at bedside. Appears stated age. Pleasant and cooperative. HEENT: Normocephalic, atraumatic. Moist oral mucosa. Extraocular movements intact. Pupils equal and reactive to light. NECK: Supple. Trachea midline. No jugular venous distention (JVD). Right neck with internal jugular (IJ) in place. The area is clean and dry. LUNGS: Breath sounds were diminished bilateral lung bases but did not appreciate rales, rhonchi, or wheezing. Symmetric chest rise. HEART: Regular rate and rhythm with normal S1, S2. I did not appreciate any murmurs, rubs, or gallops. ABDOMEN: Is nontender, less distended. Bowel sounds are normoactive. No guarding. No rebound. No peritoneal signs. EXTREMITIES: 1+ pitting edema in bilateral lower extremities. Right foot with wound vacuum-assisted closure (VAC) in place, functioning well. NEUROLOGICAL: She is alert, awake, and oriented times three. No focal deficits appreciated. PSYCHIATRIC: Normal affect. LABORATORY DATA: WBC 12, hemoglobin 8.6, hematocrit 27.5, improved from yesterday of 7.5, platelets 515. Sodium 137, potassium 3.4, chloride 99, carbon dioxide 31, BUN 11, creatinine 0.7, glucose 236, calcium 7.9, magnesium 1.6, alkaline phosphatase is 395 improved from yesterday, albumin 1.1, total protein 5.1. Fingerstick glucose have been ranging 142-277. Wound culture positive for Streptococcus anginosus and porphyromonas. Blood cultures negative after 5 days. Right foot x-ray showed soft tissue edema over the dorsum and along the plantar surface, unchanged. Multiple radiopaque pellets are noted within the soft tissues along the plantar surface. Abdominal ultrasound showed probable gallbladder calculus, gallbladder partially collapsed, two 1 cm foci in the right lobe of the liver, possible hemangioma, hepatomegaly, spleen is of normal size, unremarkable, no hydronephrosis, no aneurysm, bilateral pleural effusion. IMPRESSION AND PLAN: Ms. Kingston is a 35-year-old female with history of type 1 diabetes and osteomyelitis presented with right foot fasciitis. 1. Right foot abscess and fasciitis. She is status post incision and drainage (I and D). Underwent placement of wound VAC. Continues to be improving each day. Wound culture did not come back for methicillin-resistant Staphylococcus aureus (MRSA). Therefore, we have discontinued vancomycin. Currently, on day #7 of Zosyn. Greatly appreciate Dr. Black's assistance. For now, we will continue Zosyn. 2. Hypertension. Blood pressure shows some improvement. We did administer multiple doses of Lasix to help with diuresis. Will continue Norvasc 5 mg by mouth daily, lisinopril 30 mg daily. 3. Transaminitis. Resolving. Secondary to septic shock. 4. Acute kidney injury. Resolved after treatment of septic shock. 5. Anemia. Her hemoglobin is improved today compared to yesterday. She is status post 2 units of packed red blood cells since admission. Stool occult is negative. 6. History of osteomyelitis. She is status post right 4th metatarsal amputation. 7. Type 1 diabetes. Continue insulin sliding scale and Levemir 20 units daily. The patient usually takes Lantus 30 units at home. 8. Leukocytosis. Essentially, unchanged compared to yesterday. Overall, clinically, she appears to be improving. This is secondary to infection. Because of her stable condition, we will discontinue her central line today. 9. Hypoalbuminemia. Recommend the patient increase by mouth intake. We will add Ensure to her meals. 10. Deep venous thrombosis (DVT) prophylaxis. Sequential compression devices (SCDs) and thromboembolism deterrents (TEDs). Lovenox was started yesterday. My preceptor for this patient encounter was Dr. Buster Woodard. The preceptor was physically present in the building during the encounter and was fully available. As needed, all aspects of the patient interview, examination, medical decision making process, and medical care plan development were reviewed and approved by the preceptor. The preceptor is aware and concurs with the plan as stated in the body of this note and will attest to such by his/her cosignature. ERICK
[2016-09-28 14:00] VITALS: BP 160/91
--- NOTE | 2016-09-28 19:44 | IPN ---
DATE: 09/28/2016 TIME: 6:51 p.m. CHIEF COMPLAINT: The patient is seen at bedside for evaluation of a wound on the plantar surface of her right foot. She states that the VAC is working well and is not giving her any irritation and she is feeling better. PHYSICAL EXAMINATION: The VAC was evaluated and is working satisfactorily. The VAC was removed and the wound was inspected. The plantar wound measures 11.0 cm from distal to proximal. It is at it's widest point at the distal margin measuring 4.0 cm. It is approximately 1 cm in depth. Evaluation of the fourth toe amputation site reveals an ulceration measuring 2 cm x 0.3 cm x 0.5 cm at its deepest margin. The wound, proximally, displays a good granulation tissue base. The flexor tendons are visible and viable on the plantar wound. The erythema previously present around the wound has almost completely resolved and is now just sherly incisional. The mycobacteriology was reviewed, revealing Group B streptococcus (GBS), Streptococcus milleri. However, the previous bone culture reveals growth of Group B streptococcus (GBS), Streptococcus milleri, and Staphylococcus aureus. Pedal pulses are palpable. Digits are viable on the right foot. X-ray was reviewed revealing reduction in the air in the subcutaneous tissues with no signs of osteomyelitis and, as noted, a previous fourth toe amputation. Laboratory studies were reviewed revealing a continued reduction in C-reactive protein. This measures 4.65, GFR is greater than 60, WBC 12.0. ASSESSMENT: 1. Status post fourth toe amputation secondary to osteomyelitis with evacuation of deep central space, presently treated with wound VAC therapy. PLAN: The wound VAC was removed today and a white and black foam composite wound VAC was reapplied. Good seal was noted. The wound VAC is set at 175 mmHg. It is set on intermittent, 5 minutes on and 2 minutes off. Discussed with the patient antibiotic coverage. Would recommend discontinuing Zosyn and running vancomycin. Discharge with wound VAC therapy and continuing Augmentin 875 mg one by mouth twice a day. Would recommend 10 days of coverage on discharge. The patient's questions were answered.
[2016-09-28] MEDS: ENOXAPARIN 40 MG/0.4 ML SYRINGE (J1650) SC SCH (20:38)
[2016-09-28] MEDS ORDERED: VANCOMYCIN HCL 500 MG in D5W MINI-BAG PLUS 100 ML IV ONE (21:00)
[2016-09-28 22:00] VITALS: BP 161/98
--- NOTE | 2016-09-28 23:21 | PHACANCOPD ---
PHARMACY VANCOMYCIN DOSING Pt Demographics Demographics Patient Age:35 , Weight:76.400 , Gender: female Adjusted Body Weight Events Past 24 Hours Events Past 24 Hours: NO: Change in CrCl, Dialysis, Diuretic Therapy, Elevation in WBC, Fever, Other, Pending Diagnostics, Pending Procedures Vancomycin Vancomycin indication: FASCIITIS Vancomycin Target Ranges: 15-20 mcg/ml Vancomycin Load Y/N: Yes Load Dose Date Time Vancomycin Load Dose: 1.5g Date: 09/28/16 Time: 20:00 Vancomycin Dose Date: 09/29/16. Current Vancomycin Dose: [1GM IV Q12H start @ 8am] Intermittent Dosing?: No Labs Labs Laboratory Tests 09/28/16 05:33 Calcium Level 7.9 L, Aspartate Amino Transf (AST/SGOT) 15, Alanine Aminotransferase (ALT/SGPT) 47, Alkaline Phosphatase 395 H, Total Bilirubin 0.2 , Total Protein 5.9 L, Albumin 1.1 L, Red Blood Count 3.16 L, Mean Corpuscular Volume 86.8, Mean Corpuscular Hemoglobin 27.2, Mean Corpuscular Hemoglobin Concent 31.3 L, Red Cell Distribution Width 14.5 Creatinine Clearance Date:09/28/16. Estimated Creatinine Clearance: [>60 ml/min]. Assessment and Plan Maintaining Current Dose?: No Reason for dose change: Other Pharmacist Note Pharmacist Note 09/26: Pharm NOTE: VANCO 1.5GM LOAD @ 20:0 FOLLOWED BY 1GM IV Q12H STARTING AT 8AM 09/29 A VANCO TROUGH WILL BE ORDERED WHEN AT [facility] Sep 28, 2016 23:21
[2016-09-29] MEDS: SODIUM CHLORIDE 0.9% INJ 10 ML SYR IV SCH ×3 (05:56→21:54)
[2016-09-29 06:00] VITALS: BP 166/95
[2016-09-29 06:36] LABS: ALBUMIN 1.3 GM/DL (3.2-5.2); ALBUMIN/GLOBULIN RATIO 0.27 (1.00-1.93); ALKALINE PHOSPHATASE 372 U/L (45-117); ALT/SGPT 40 U/L (12-78); ANION GAP 7 MEQ/L (8-16); AST/SGOT 12 U/L (15-37); BILIRUBIN,TOTAL 0.2 MG/DL (0.2-1.0); BLOOD UREA NITROGEN 13 MG/DL (7-18); CARBON DIOXIDE LEVEL 29 MEQ/L (21-32); CHLORIDE LEVEL 98 MEQ/L (98-107); CREATININE FOR GFR 0.74 MG/DL (0.55-1.02); GLOMERULAR FILTRATION RATE > 60.0 (>60); GLUCOSE, FASTING 347 MG/DL (70-105); POTASSIUM SERUM 4.2 MEQ/L (3.5-5.1); SODIUM LEVEL 134 MEQ/L (136-145); TOTAL PROTEIN 6.1 GM/DL (6.4-8.2)
[2016-09-29] MEDS: VANCOMYCIN HCL 1,000 MG, VIAL MATE ADAPTER 1 EACH in D5W 250 ML IV SCH ×2 (08:16→20:08)
[2016-09-29] MEDS: HumaLOG INSULIN (NovoLOG) PER UNIT SC SCH ×4 (08:17→20:33)
[2016-09-29] MEDS: LEVEMIR (INSULIN DETEMIR) 1 UNITS/0.01ML SC SCH (08:17)
[2016-09-29] MEDS: LACTOBACILLUS ACIDOPHILUS CAP (BACID) PO SCH ×2 (08:18→20:08)
[2016-09-29] MEDS: amLODIPine 5 MG TAB PO SCH (08:18)
[2016-09-29] MEDS: LISINOPRIL 10 MG TAB PO SCH (08:18)
[2016-09-29 08:39] LABS: MEAN CORPUSCULAR HEMOGLOBIN 27.3 pg (27.0-33.0); MEAN CORPUSCULAR HGB CONC 31.2 g/dl (32.0-36.5); MEAN CORPUSCULAR VOLUME 87.2 fl (80.0-96.0); RED CELL DISTRIBUTION WIDTH 14.2 % (11.5-14.5); WHITE BLOOD COUNT 12.5 K/mm3 (4.0-10.0)
[2016-09-29 08:44] LABS: MEAN CORPUSCULAR HEMOGLOBIN 26.6 pg (27.0-33.0); MEAN CORPUSCULAR HGB CONC 30.4 g/dl (32.0-36.5); MEAN CORPUSCULAR VOLUME 87.5 fl (80.0-96.0); RED CELL DISTRIBUTION WIDTH 14.2 % (11.5-14.5); WHITE BLOOD COUNT 11.8 K/mm3 (4.0-10.0)
[2016-09-29 09:23] LABS: MAGNESIUM LEVEL 1.9 MG/DL (1.8-2.4)
--- NOTE | 2016-09-29 13:47 | IPN ---
DATE: 09/29/2016 SUBJECTIVE: This is a 35-year-old female who was seen and examined at bedside. No reported acute events overnight. Yesterday, her Zosyn was discontinued and it was recommended by Dr. Black to continue with vancomycin. Otherwise, feels well. Denies any chest pain, shortness of breath, palpitations, fevers or chills. Abdominal discomfort is now significantly resolved. OBJECTIVE: VITAL SIGNS: Blood pressure 166/95, heart rate 99, temperature 98.9, respiration rate 18, pulse oximetry 98% on room air. Intake and output over the last 24 hours 900/2300. Weight is 76.8. GENERAL: Patient is sitting in chair, comfortable, in no acute distress. Alert , awake and oriented times three. Pleasant and cooperative. HEENT: Normocephalic, atraumatic. Moist oral mucosa. Eyes extraocular movements intact. Pupils equal and reactive to light. NECK: Supple. Trachea midline. No jugular venous distention (JVD). Right neck with internal jugular (IJ) in place, area is clean and dry. LUNGS: Diminished bilateral lung bases but did not appreciate rales, wheezing or rhonchi. HEART: Regular rate and rhythm with normal S1, S2. No appreciable murmurs, rubs, or gallops. ABDOMEN: Nontender, nondistended. Bowel sounds present, normal active. EXTREMITIES: 1+ pitting bilateral lower extremity. Wound VAC in place, functioning well. NEUROLOGICAL: Alert, awake, and oriented times three. No focal deficits appreciated. PSYCHIATRIC: Normal affect. LABORATORY DATA: WBC 12.5, hemoglobin 9.5, hematocrit 30.3, platelets 533. Sodium 134, potassium 4.2, chloride 98, carbon dioxide 29, BUN 13, creatinine 0.74, glucose 347, calcium 8, magnesium 1.9, AST 12, ALT 40, alkaline phosphatase 372. IMPRESSION/PLAN: Ms. Kingston is a 35-year-old female with history of type 1 diabetes and osteomyelitis presented with right foot fasciitis. 1. Right foot abscess and fasciitis. She is status post incision and drainage and wound VAC placement. Currently is on day 8 of vancomycin. Is currently followed by Dr. Black. She will go home with wound VAC. Plan is for her to be discharged home, hopefully tomorrow once her wound VAC situation. Will plan for outpatient Augmentin for 10 days. 2. Hypertension. Blood pressure is still elevated. We have increased Norvasc from 5 mg by mouth daily to 10 mg. She is on her home dose lisinopril 30 mg daily. 3. Transaminitis. Resolving. 4. Acute kidney injury. Resolved. 5. Anemia. Hemoglobin is improved today compared to yesterday. No evidence of bleeding. She is status post 2 units of packed red blood cells. 6. Type 1 diabetes. Continue insulin sliding scale. She takes Lantus 30 units at home. 7. Leukocytosis unchanged. Clinically improves each day. 8. Hypoalbuminemia. Continue recommending good by mouth intake. She is on Ensure with meals. 9. Deep venous thrombosis (DVT) prophylaxis. Sequential compression devices (SCD), thromboembolism deterrents (TEDS) and Lovenox. DISPOSITION: If she continues to be doing well, we hope to have discharge planning within the next 24-48 hours. My preceptor for this patient encounter was Dr. Laina Mejía. The preceptor was physically present in the building during the encounter and was fully available. As needed, all aspects of the patient interview, examination, medical decision making process, and medical care plan development were reviewed and approved by the preceptor. The preceptor is aware and concurs with the plan as stated in the body of this note and will attest to such by his/her cosignature. ERICK
[2016-09-29 14:00] VITALS: BP 142/90
[2016-09-29] MEDS: ENOXAPARIN 40 MG/0.4 ML SYRINGE (J1650) SC SCH (20:08)
[2016-09-29 22:00] VITALS: BP 174/93
[2016-09-29 23:45] VITALS: BP 154/86
[2016-09-30 06:00] VITALS: BP 138/98
[2016-09-30] MEDS: SODIUM CHLORIDE 0.9% INJ 10 ML SYR IV SCH ×2 (06:27→12:34)
[2016-09-30 06:42] LABS: MEAN CORPUSCULAR HEMOGLOBIN 26.7 pg (27.0-33.0); MEAN CORPUSCULAR HGB CONC 30.3 g/dl (32.0-36.5); MEAN CORPUSCULAR VOLUME 88.1 fl (80.0-96.0); RED CELL DISTRIBUTION WIDTH 14.1 % (11.5-14.5); WHITE BLOOD COUNT 12.7 K/mm3 (4.0-10.0)
[2016-09-30 07:01] LABS: ANION GAP 8 MEQ/L (8-16); BLOOD UREA NITROGEN 19 MG/DL (7-18); CALCIUM LEVEL 8.8 MG/DL (8.5-10.1); CARBON DIOXIDE LEVEL 30 MEQ/L (21-32); CHLORIDE LEVEL 96 MEQ/L (98-107); GLOMERULAR FILTRATION RATE > 60.0 (>60); MAGNESIUM LEVEL 1.9 MG/DL (1.8-2.4); POTASSIUM SERUM 4.6 MEQ/L (3.5-5.1); SODIUM LEVEL 134 MEQ/L (136-145)
[2016-09-30 07:08] LABS: GLUCOSE, FASTING 439 MG/DL (70-105)
[2016-09-30] MEDS: VANCOMYCIN HCL 1,000 MG, VIAL MATE ADAPTER 1 EACH in D5W 250 ML IV SCH (08:55)
[2016-09-30] MEDS: HumaLOG INSULIN (NovoLOG) PER UNIT SC SCH ×3 (08:55→17:30)
[2016-09-30] MEDS: LISINOPRIL 10 MG TAB PO SCH (08:56)
[2016-09-30] MEDS: LACTOBACILLUS ACIDOPHILUS CAP (BACID) PO SCH (08:57)
[2016-09-30] MEDS: LEVEMIR (INSULIN DETEMIR) 1 UNITS/0.01ML SC SCH (08:58)
[2016-09-30] MEDS ORDERED: amLODIPine 5 MG TAB PO SCH (09:00)
[2016-09-30] MEDS ORDERED: amLODIPine 10 MG TAB PO SCH (09:00)
[2016-09-30 09:03] VITALS: BP 138/98
[2016-09-30] MEDS ORDERED: LISI10TA4 PO (09:07)
[2016-09-30] MEDS ORDERED: AMLO5TAB2 PO (09:07)
[2016-09-30] MEDS ORDERED: VANCOMYCIN HCL 1,000 MG, VIAL MATE ADAPTER 1 EACH in NS 250 ML IV SCH ×2 (09:45→10:00)
[2016-09-30] MEDS ORDERED: AUGM875T27 PO (11:07)
--- NOTE | 2016-09-30 13:12 | PHACANCOPD ---
PHARMACY VANCOMYCIN DOSING Pt Demographics Demographics Patient Age:35 , Weight:74.000 , Gender: female Adjusted Body Weight Events Past 24 Hours Events Past 24 Hours: NO: Dialysis, Diuretic Therapy, Change in CrCl, Fever, Elevation in WBC, Pending Diagnostics, Pending Procedures, Other Vancomycin Vancomycin indication: FASCIITIS Vancomycin Target Ranges: 15-20 mcg/ml Vancomycin Load Y/N: Yes Load Dose Date Time Vancomycin Load Dose: 1.5g Date: 09/28/16 Time: 20:00 Vancomycin Dose Date: 09/30/16. Current Vancomycin Dose: [1GM IV Q12H@08] Date: 09/29/16. Current Vancomycin Dose: [1GM IV Q12H start @ 8am] Intermittent Dosing?: No Labs Labs Item Value Date Time White Blood Count 11.8 K/mm3 H 09/29/16 0600 White Blood Count 12.5 K/mm3 H 09/29/16 0830 White Blood Count 12.7 K/mm3 H 09/30/16 0631 Creatinine 0.74 MG/DL 09/29/16 0550 Creatinine 0.80 MG/DL 09/30/16 0631 Vancomycin Level Trough 15.9 UG/ML 09/30/16 0631 Micro Microbiology 09/21/16 Blood Culture - Final, Complete NO GROWTH AFTER 5 DAYS 09/21/16 Blood Culture - Final, Complete NO GROWTH AFTER 5 DAYS 09/25/16 Stool Occult Blood (MARGARITO) - Final, Complete 09/21/16 Gram Stain - Final, Complete 09/21/16 Wound Culture - Final, Complete Strep Anginosus (S.milleri) 09/21/16 Anaerobic Culture - Final, Complete Porphyromonas Asaccharolytica Creatinine Clearance Date:09/28/16. Estimated Creatinine Clearance: [>60 ml/min]. Assessment and Plan Maintaining Current Dose?: Yes Reason for dose change: No Dose Change Pharmacist Note Pharmacist Note 09/30: Patients trough came back at 15.9 so she was continued on Vancomycin 1gm IV q24h. Her WBC is within normal limits, and she is afebrile. We will continue to monitor and make adjustments as necessary 09/26: Pharm NOTE: VANCO 1.5GM LOAD @ 20:0 FOLLOWED BY 1GM IV Q12H STARTING AT 8AM 09/29 A VANCO TROUGH WILL BE ORDERED WHEN AT [facility] Sep 30, 2016 13:12
[2016-09-30 14:00] VITALS: BP 135/72
[2016-09-30 14:10] VITALS: BP 138/68
[2016-09-30 14:15] VITALS: BP 135/80
--- NOTE | 2016-10-01 14:19 | DSES ---
DATE OF ADMISSION: 09/21/2016 DATE OF DISCHARGE: 09/30/2016 PRIMARY CARE PROVIDER: Peggy Escobar CONSULTATIONS: Dr. Black, podiatry. PROCEDURES: 1. Incision and drainage of deep ventral and superficial compartments and medial compartment of right foot on 09/22/2016. 2. Debridement of muscle and fascia right foot with application of wound vacuum-assisted closure (VAC) on 09/25/2016. 3. Placement of right internal jugular (IJ) central line. COMPLICATIONS: None. DIAGNOSTIC IMAGIN. Foot x-ray showed extensive soft tissue emphysema in the plantar soft tissued, gas forming cellulitis or fasciitis suspected, status post amputation of fourth toe. 2. CT abdomen and pelvis showed anasarca pattern, diffuse subcutaneous edema with mild ascites, bilateral pleural effusions, some discoid atelectasis of lower lobes bilateral lung leigh. 3. Abdominal ultrasound showed probable gallbladder calculus, possible hemangioma, hepatomegaly, no hydronephrosis, bilateral pleural effusion. DISCHARGE DIAGNOSES: 1. Right foot abscess/fasciitis. 2. Septic shock. 3. Transaminitis. 4. Anemia. 5. Acute kidney injury. 6. Hypoalbuminemia. 7. Leukocytosis. 8. Hypotension. SECONDARY ADMITTING DIAGNOSES: 1. Type 1 diabetes. 2. History of osteomyelitis. BRIEF HOSPITAL COURSE: Ms. Kingston is a pleasant 35-year-old female with past medical history as mentioned above who recently underwent right fourth toe amputation earlier this month and, at that time, was then discharged home with Augmentin. However, after being home for approximately three days, she started developing high fevers, chills, and presented again to the hospital for evaluation. Her highest temperature on admission was 102.7. Aside from fever and chills, she denied any pain to her foot. However, in the emergency room (ER), she was found to be hypotensive with systolic as low as 63/42 with mean arterial pressure (MAP) of 49. Because of her septic shock, she underwent aggressive fluid resuscitation and also placement of central line and was placed on Levophed. She had an x-ray of her foot with result as mentioned above. Because of her critically ill condition, she was emergently evaluated by Dr. Black who underwent incision and drainage as mentioned above. She required revisit to the operating room (OR) for further debridement and wound vacuum-assisted closure (VAC) placement. She was also placed on broad-spectrum antibiotics vancomycin and Zosyn. With surgery, antibiotics and pressure support, her condition improved slowly. However, she did develop significant edema which was believed to be secondary to hypoalbuminemia and did require administration of Lasix to help with diuresis after her blood pressure improved. For her transaminitis and acute kidney injury (MYLENE), this was believed to be secondary to septic shock and resolved after treatment of septic shock. For her anemia, her stool occult was negative. She did receive two units of packed red blood cells. Her condition slowly improved and her blood pressure actually became hypertensive and did require reinstitution of her lisinopril home medication and also placed on Norvasc. PHYSICAL EXAMINATION AT THE TIME OF DISCHARGE: VITAL SIGNS: Blood pressure 138/98, heart rate 90, temperature 99.6, respiratory rate 18, pulse oximetry 99% on room air. INTAKE AND OUTPUT: 2180 and 4540. GENERAL: Patient is sitting in bed, comfortable, in no acute distress, awake, alert and oriented times three, pleasant and cooperative. HEENT: Normocephalic, atraumatic. Moist oral mucosa. NECK: Supple. Trachea midline. No jugular venous distention (JVD). LUNGS: Breath sounds diminished bilateral lung bases but no wheezing, rales, or rhonchi. HEART: Regular rate and rhythm with normal S1, S2. ABDOMEN: Soft, nontender, nondistended. Bowel sounds present. No guarding. No rebound. EXTREMITIES: 1+ pitting edema bilateral lower extremities. Wound vacuum-assisted closure (VAC) in place. NEUROLOGIC: No focal deficits. Awake, alert, and oriented times three. PSYCHIATRIC: Pleasant, normal affect. LABORATORY DATA: WBC 12.7, hemoglobin 9.4, hematocrit 31, platelets 574. Sodium 134, potassium 4.6, chloride 96, carbon dioxide 30, BUN 19, creatinine 0.8, glucose 439, repeat was 306, magnesium 1.9, CRP 3.9. DISPOSITION: Discharge home. CONDITION: Stable. Activity as tolerated. Carbohydrate consistent diet. DISCHARGE MEDICATIONS: New medications: - Norvasc 5 mg by mouth daily - lisinopril 30 mg by mouth daily - Augmentin for 10 day Continue the following home medications: - Lantus 30 units subcutaneous every morning - insulin sliding scale Stop the following home medication: - lisinopril 20 mg daily - Macrobid 100 mg twice a day Discharge home with home health. FOLLOWUP: With [facility] next week and Dr. Black in two weeks. DISCHARGE INSTRUCTIONS: The patient was instructed to return to the hospital if she has worsening or recurrent symptoms. She is also to have laboratory work done on 10/05/2016 with results sent to primary care provider (PCP) and Dr. Black. All of this was explained to the patient at the time of discharge and all questions answered. TIME SPENT: 45 minutes. My preceptor for this patient encounter was Dr. Laina Mejía. The preceptor was physically present in the building during the encounter and was fully available as needed. All aspects of the patient interview, examination, medical decision making process, and medical care plan development were reviewed and approved by the preceptor. The preceptor is aware and concurs with the plan as stated in the body of this note and will attest to such by his/her co-signature.
== END 2016-09-30 19:20 | disposition home health service (06) | DRG 853 ==
LOC: M ED 16:56 → M ED INP 18:57 → M ICU 22:10 → M MSPAV 09-24 15:35
PROVIDERS: ADMIT Internal Medicine; ATTEND Internal Medicine
PROC: 05HM33Z Insertion of Infusion Device into Right Internal Jugular Vein, Percutaneous Approach (ICD-10-PCS; 2016-09-21)
PROC: 30233N1 Transfusion of Nonautologous Red Blood Cells into Peripheral Vein, Percutaneous Approach (ICD-10-PCS; 2016-09-22)
PROC: 0JBQ0ZZ Excision of Right Foot Subcutaneous Tissue and Fascia, Open Approach (ICD-10-PCS; principal; 2016-09-22 08:30)
PROC: 0JBQ0ZZ Excision of Right Foot Subcutaneous Tissue and Fascia, Open Approach (ICD-10-PCS; 2016-09-25)
PROC: 0KBV0ZZ Excision of Right Foot Muscle, Open Approach (ICD-10-PCS; 2016-09-25)
DX: A41.9 Sepsis, unspecified organism (principal); R65.21 Severe sepsis with septic shock; L03.115 Cellulitis of right lower limb; N17.9 Acute kidney failure, unspecified; M72.8 Other fibroblastic disorders; D64.9 Anemia, unspecified; D72.829 Elevated white blood cell count, unspecified; E88.09 Other disorders of plasma-protein metabolism, not elsewhere classified; E10.9 Type 1 diabetes mellitus without complications; Z79.899 Other long term (current) drug therapy; Z79.4 Long term (current) use of insulin; E78.5 Hyperlipidemia, unspecified; Z88.5 Allergy status to narcotic agent; Z88.8 Allergy status to other drugs, medicaments and biological substances

== ENCOUNTER → 2016-10-05 | Outpatient (REF) | payer OTHER ==
[~2016-10-05] MED LIST changes: +AMLO5TAB2 PO; +ATOR1TAB21 PO; +MACR100C42 PO; +NITR100C2
[2016-10-05 13:05] LABS: MEAN CORPUSCULAR HEMOGLOBIN 27.1 pg (27.0-33.0); MEAN CORPUSCULAR HGB CONC 30.4 g/dl (32.0-36.5); MEAN CORPUSCULAR VOLUME 88.9 fl (80.0-96.0); RED CELL DISTRIBUTION WIDTH 14.5 % (11.5-14.5); WHITE BLOOD COUNT 9.3 K/mm3 (4.0-10.0)
== END ==
LOC: M SHH 12:14
PROVIDERS: ATTEND Internal Medicine
DX: L02.611 Cutaneous abscess of right foot (principal)

== ENCOUNTER → 2017-02-02 | Outpatient (REF) | payer OTHER ==
[~2017-02-02] MED LIST changes: -AUGM875T27 PO; +AUGM875T28 PO; -MACR100C3 PO; +MACR100C43 PO; -ZETI10TA2 PO; +ZETI10TA30 PO
== END ==
LOC: M LAB REF 17:27
PROVIDERS: ATTEND Podiatrist
DX: M86.171 Other acute osteomyelitis, right ankle and foot (principal)

== ENCOUNTER → 2017-03-23 | Outpatient (REF) | payer OTHER | LOC: M LAB REF 12:38 | PROVIDERS: ATTEND Podiatrist | DX: M86.171 Other acute osteomyelitis, right ankle and foot (principal) ==